=== PATIENT | female | born 1930 | race Caucasian/White ===

== ENCOUNTER 2018-11-07 22:53 | Inpatient (IN) ==
[2018-11-08] MEDS ORDERED: NS 1,000 ML IV ONE (00:20)
[2018-11-08 01:12] LABS: BASO# 0.02 X1000 (0.0-0.2); BASO% 0.2 % (0.0-0.8); EOS# 0.04 X1000 (0.0-0.7); EOS% 0.3 % (0.0-10.0); HEMATOCRIT 35.4 % (37.0-47.0); HEMOGLOBIN 10.5 g/dL (12.0-16.0); LYMPH# 1.76 X1000 (1.2-3.4); LYMPH% 14.7 % (20.5-51.1); MCH 21.7 PG (27-31); MCHC 29.7 g/dL (33-37); MCV 73.1 FL (81-99); MONO# 1.18 X1000 (0.11-0.59); MONO% 9.8 % (1.7-9.3); MPV 10.6 FL (7.4-10.4); PLT 359 X1000 (130-400); RBC 4.84 XMIL (4.2-5.4)
[2018-11-08 01:14] LABS: AGAP 12; ALB/GLOB RATIO 1.7; ALBUMIN 4.3 g/dL (3.5-5.0); ALKALINE PHOSPHATASE 67 U/L (32-104); BUN 15 mg/dL (8-22); CALCIUM 10.9 mg/dL (8.8-10.2); CHLORIDE 102 mmol/L (98-107); CK TOTAL 101 U/L (24-173); COSMO 287; ESTIMATED GFR 53; GLUCOSE 127 mg/dL (70-104); GOT 16 U/L (10-30); GPT 12 U/L (10-36); LIPASE 17 U/L (13-60); POTASSIUM 4.1 mmol/L (3.5-5.1); SODIUM 143 mmol/L (136-145); TCO2 29 mmol/L (25-35); TOTAL BILIRUBIN < 0.15 mg/dL (0.20-1.00); TOTAL PROTEIN 6.8 g/dL (6.3-8.3)
--- NOTE | 2018-11-08 02:22 | PROVIDER DOCUMENTATION ---
This chart was entered by Catia Burns Scribe, acting as scribe for Jhonatan Mohamud MD. HPI-General Adult - General Chief Complaint: Diarrhea Stated Complaint: fall, diarrhea, weakness Time Seen by Provider: 11/07/18 23:39 Source: patient, family Allergies/Adverse Reactions: Patient Allergies Allergy/AdvReac Type Severity Reaction Status Date / Time codeine Allergy Unknown Verified 06/06/18 20:18 Penicillins Allergy ANAPHYLAXIS Verified 06/06/18 20:18 meperidine HCl * AdvReac NAUSEA Verified 06/06/18 20:18 [From Demerol] morphine AdvReac NAUSEA/VOMI Verified 06/06/18 20:18 TING promethazine HCl * AdvReac NAUSEA Verified 06/06/18 20:18 [From Phenergan] pseudoephedrine AdvReac Unknown Verified 06/06/18 20:18 Home Medications: Home Medication List Medication Instructions Recorded Confirmed Last Taken Type Aspirin 81 mg PO QAM 05/11/12 12/18/17 12/18/17 08:00 History Clopidogrel [Plavix] 75 mg PO QHS 05/11/12 12/18/17 12/17/17 20:00 History Metformin [Glucophage] 500 mg PO BID 05/11/12 12/18/17 12/18/17 08:00 History ROSUVAstatin [Crestor] 40 mg PO QHS 05/11/12 12/18/17 12/17/17 20:00 History Nitroglycerin 0.4 mg SL PRN PRN 10/31/13 12/18/17 3 Months Ago History ~06/18/15 Ranolazine E.r. [Ranexa] 500 mg PO BID 10/31/13 12/18/17 12/17/17 20:00 History Omeprazole 40 mg PO DAILY 08/30/15 12/18/17 12/18/17 08:00 History Amlodipine [Norvasc] 10 mg PO DAILY #90 tablet 09/23/15 12/18/17 12/17/17 20:00 Rx LISINOpril [Prinivil] 40 mg PO QAM #90 tablet 09/23/15 12/18/17 12/15/17 08:00 Rx Ondansetron HCl [Zofran] 4 mg PO Q8H PRN 07/07/16 12/18/17 12/18/17 03:00 History Duloxetine [Cymbalta] 30 mg PO BID capsule 12/21/17 Unknown Rx Hydroxyzine [Atarax] 10 mg PO DAILY #30 tablet 12/21/17 Unknown Rx Rivaroxaban [Xarelto] 10 mg PO DAILY #30 tablet 12/21/17 Unknown Rx Tramadol/APAP [Ultracet 1 ea PO Q6H PRN PRN #20 tab 12/21/17 Unknown Rx 37.5MG/325Mg] Levofloxacin [Levaquin] 500 mg PO DAILY #10 tab 06/07/18 Unknown Rx Polyethylene Glycol 3350 [Miralax] 17 gm PO DAILY #10 powd.pack 06/07/18 Unknown Rx - History of Present Illness -Gen Adult Nature of Presenting Problems: Pt is 88/F presenting to ED w/ diarrhea that started this morning and some nausea and weakness. Pt has fallen 4 times today and had to call EMS twice to help her back up. Pt denies any LOC. Location of Pain/Injury: reports: none, generalized (generalized weakness) Pain Radiation: reports: no radiation Quality of Pain: reports: none Severity: reports: moderate Onset/Duration: reports: this morning Timing: reports: still present Context/Activities at Onset: reports: none Modifying Factors: improves with: nothing Associated Symptoms: reports: diarrhea, fatigue, nausea, weakness, trouble walking. denies: cough, fever/chills, shortness of breath Similar Symptoms Previously?: No Review of Systems - Adult - REVIEW OF SYSTEMS - ADULT Constitutional: reports: no symptoms reported. denies: chills, fever Eyes: reports: no symptoms reported Ears, Nose, Mouth & Throat: reports: no symptoms reported Cardiovascular: reports: no symptoms reported Respiratory: reports: no symptoms reported Gastrointestinal: reports: no symptoms reported, diarrhea. denies: nausea, vomiting Genitourinary: reports: no symptoms reported Musculoskeletal: reports: no symptoms reported Integumentary: reports: no symptoms reported Neurological: reports: no symptoms reported. denies: dizziness/vertigo, headache/migraines Endocrine: reports: no symptoms reported Hematologic/Lymphatic: reports: no symptoms reported Allergic/Immunologic: reports: no symptoms reported All Other Systems: Reviewed and Negative Past History - Adult - PAST MEDICAL HISTORY-ADULT Review of Records: reports: Old Records Reviewed, Nursing Assessment Review, Medications Reviewed, Social history reviewed & non-contributory. Major Childhood Illnesses: reports: Polio Cardiovascular: reports: A-Fib, HTN Respiratory: reports: denies history Gastrointestinal: reports: GERD, other (hiatal hernia) Obstetrical/Gynecological: reports: denies history Genitourinary: reports: denies history Musculoskeletal: reports: chronic pain, intervertebral disc disease Neurological: reports: denies history Psychiatric: reports: depression Endocrine/Immune: reports: Diabetes, denies history Other Conditions: reports: denies history, skin disorder (polio) - PRIOR SURGERIES/PROCEDURES Surgical/Procedure History: reports: hysterectomy, hernia repair, back/neck - IMMUNIZATION STATUS Childhood Immunizations: See Nurse Assessment Flu Vaccine: See Nurse Assessment - FAMILY HISTORY Family History: reviewed, not pertinent - SOCIAL HISTORY Smoking: denies Substance Use: none/never Alcohol Use Frequency: never Living Situation: alone Physical Exam-General - PHYSICAL EXAM-ADULT Initial Vital Signs Reviewed: Yes - CONSTITUTIONAL General Appearance: appears well, alert, no apparent distress - EYES Eyes: PERRL/EOMI, pink conjunctivae - HEAD, EARS, NOSE, MOUTH & THROAT HENMT: normocephalic/atraumatic, moist mucous membranes, normal ENT inspection, TMs normal, pharynx normal - NECK Neck: non-tender, full range of motion, supple, normal inspection - RESPIRATORY Respiratory: lungs clear - CARDIOVASCULAR Cardiovascular: regular rate, rhythm - GASTROINTESTINAL (ABDOMEN) Abdominal Exam: normal bowel sounds, non tender, soft - LYMPHATIC Lymphatic: no adenopathy - MUSCULOSKELETAL Back Exam: normal inspection, no CVA tenderness, no vertebral tenderness Extremity: normal range of motion, non-tender, normal gait, normal inspection - SKIN Integumentary: normal color, warm/dry - NEUROLOGIC Neurologic: grossly normal - PSYCHIATRIC Psych/Mental Status: normal mood/affect, normal thought content, normal thought process, oriented x 3 Progress - PLAN OF CARE/RESULTS Progress/Plan/Lab Results: Vital Signs - 8 hr 11/07/18 23:29 Temperature 97.6 F Pulse Rate 93 H Respiratory Rate 17 Blood Pressure 183/88 O2 Sat by Pulse Oximetry 95 Orders Category Date Time Status CT HEAD W/O CONTRAST [CT] Stat Exams 11/08/18 00:18 Ordered PELVIS [RAD] Stat Exams 11/08/18 00:19 Ordered C DIFF ANTIGEN [STOOL] Stat Lab 11/08/18 00:20 Uncollected CBC WITH ELECTRONIC DIFF [HEME] Stat Lab 11/08/18 00:18 Uncollected CK TOTAL [CHEM] Stat Lab 11/08/18 00:20 Uncollected COMPREHENSIVE METABOLIC PANEL [CHEM] Stat Lab 11/08/18 00:18 Uncollected LACTATE, PLASMA [CHEM] Stat Lab 11/08/18 00:18 Uncollected LIPASE [CHEM] Stat Lab 11/08/18 00:18 Uncollected OVA AND PARASITE W/TRICHROME [STOOL] Stat Lab 11/08/18 00:20 Uncollected PRO B-NATRIURETIC PEPTIDE Stat Lab 11/08/18 00:18 Uncollected STOOL CULTURE [RM] Stat Lab 11/08/18 00:20 Uncollected TROPONIN T Stat Lab 11/08/18 00:18 Uncollected 0.9% Sodium Chloride Inj [Ns] 1,000 ml Med 11/08/18 00:20 Active IV 999 mls/hr CT negative, pelvis xray negative, labs negative, pt has been found down on the ground twice today, will admit for hydration Result Diagrams: 11/08/18 00:32 11/08/18 00:32 Departure - Departure Date of Disposition Decision: 11/08/18 Time of Disposition Decision: 02:03 DIAGNOSIS: Diarrhea Qualifiers: Diarrhea type: presumed infectious Qualified Code(s): R19.7 - Diarrhea, unspecified Fall Qualifiers: Encounter type: initial encounter Qualified Code(s): W19.XXXA - Unspecified fall, initial encounter Disposition: ADMITTED INPATIENT 09 Certified Medical Emergency: Emergent Condition: Stable Referrals and Follow-Ups: Eloy Tuttle MD [Primary Care Provider] - - Critical Care Note This patient required my direct & personal management of CC.: No Attestation - Physician/ MATT Attestation Patient care was provided by Advanced Practice Provider:: No The physician spent face to face time with patient:: Yes Advanced Practice Provider documentation review:: Supervising physician onsite and consulted in the evaluation and care of this patient. The physician did have a face to face encounter with the patient. This chart was documented by the indicated scribe, (Catia Burns Scribe) and accurately reflects the services I performed and decisions made by me, Jhonatan Mohamud MD, as attested by the provider's signature.
[2018-11-08] MEDS ORDERED: ZOFRAN PO PRN (05:20)
[2018-11-08] MEDS ORDERED: TYLENOL PO PRN (05:34)
[2018-11-08] MEDS ORDERED: NS 1,000 ML IV SCH (05:45)
[2018-11-08] MEDS ORDERED: SODIUM CHLORIDE 0.9% INJ SCH (05:45)
--- NOTE | 2018-11-08 06:19 | Diag Imaging Result Doc PS360 ---
CT HEAD W/O CONTRAST - 11/08/2018 INDICATION: fall, head trauma COMPARISON: 12/18/2017 FINDINGS: The ventricles and sulci are normal in size and contour. Stable mild periventricular white matter chronic microvascular disease. No intracranial mass or hemorrhage. The skull is intact. The sinuses are clear. IMPRESSION: No acute disease or change from prior. This exam was performed using automated exposure control, adjustment of mA or kV according to patient size, and/or use of iterative reconstruction technique Electronically signed by Saravanan Monroe 11/08/2018 6:17 AM
--- NOTE | 2018-11-08 06:51 | HISTORY AND PHYSICAL ---
PRIMARY CARE PROVIDERS: Dr. Tuttle. CHIEF COMPLAINT: Weakness and diarrhea. HISTORY OF PRESENT ILLNESS: Ms. Renner is an 88-year-old female who presented tonight with the main complaints of weakness and a 4 to 5 day history of diarrhea. The patient states that she has been having abdominal pain in her left upper quadrant and left flank area. She states that she has had 4 to 5 days of diarrhea now. She reports that the stool color is dark brown to black. Prior to her diarrhea starting, she denied any recent problems with constipation. The patient reports that she does take MiraLAX to prevent constipation. She reports that the pain in her left upper quadrant and left flank area is intermittent. It is sharp at times though is sore at times as well. The patient also reports that she does have some dysphagia and is having difficulty swallowing liquids and food down at times. She also reports that she does have an upset stomach very often and does have frequent nausea as well as vomiting. She reports that the vomiting episodes do occur after eating sometimes when she eats too much. She reports that she can only eat small amounts at a time. She also reports that she has had a chronic cough for a long time secondary to some sinus drainage and when she coughs a lot she vomits as well. The patient does report that she has chronic pain but denies any new body aches or chills though she states that she has felt like she has had a fever, though this is only subjective, she has not checked her temperature at home. She reports that she does have severe headaches and left earache secondary to complications from her polio. This is not of new onset. She does report occasional chest pain although she denies any chest pain at present. The patient states she does have a lot of upper back and neck problems and she has chest pain that radiates to her back. She also reports that she becomes short of breath at times when she over exerts herself as well as when she eats she becomes short of breath as well. She does report that she is having some dysuria at this time and does have frequent urinary tract infections though she denied any recent antibiotic use. She also reports that she does have occasional swelling in her extremities although they are not edematous at this time. She does have some decreased sensation, loss of some motor control and deformity/foot drop to bilateral lower extremities though the patient states this is secondary to her polio and is not of new onset. She denies any recent changes to any of her medications. The patient reports that she does have chronic weakness secondary to her polio and back problems though this has been worse recently. She states that just prior to arrival to the ER, she was having difficulty moving herself from the bed to the wheelchair. The patient is nonambulatory though can place her feet on the ground to stand to pivot from the bed to the wheelchair. She states that when she put her feet on the ground, her legs gave way. She states that during this time, she was also having uncontrolled diarrhea as well. This is why she presented to the ER this evening. She also reports that she thinks she may have some dementia type symptoms. She stated that at 1 point, she did not recognize she was in her apartment. She stated that she thought 1 of her family members had come to pick her up though they had not. She also reports that she has been hearing music playing. This are things that she said have not happened in the past that she has noticed here recently that has happened a few times. The patient reports that she does live alone though does have some grand kids that live nearby that do help her though she does not have home health or an aide that comes out and assist her right now and does not have a Life Alert type device that she wears at home. Upon evaluation in the ER, she did have some mild leuk[place] [address] and is mildly anemic as well. Electrolytes were pretty unremarkable except for she had a slightly elevated creatinine at 1.0 with a GFR 53. Her troponin was negative. EKG unfortunately did have a lot artifact present though does appear that she has a sinus rhythm with a first-degree AV block at a rate of 89 with a QTc of 438. Did perform a CT head given her weakness. It showed no acute intracranial abnormality. The patient stated at home that she did not fall that she felt weak and had sat herself down in the floor. They also did perform a pelvis x-ray which did not show any acute bony abnormality. We do have an abdomen and pelvis with IV and oral contrast pending at this time. The patient will be placed inpatient admission. REVIEW OF SYSTEMS: A 14 point review of systems was conducted with the patient. All were negative except for pertinent positives mentioned in the above HPI. PAST MEDICAL HISTORY: 1. Chronic back pain. 2. Depression and anxiety. 3. Diabetes mellitus type 2. 4. History of fractures of both ankles. 5. History of acid reflux disease. 6. Hyperlipidemia. 7. Hypertension. 8. History of poliomyelitis which has affected her left side mainly being her left leg though she does have left-sided facial droop noted. She does report chronic headaches and chronic left ear pain. 9. C-spine spondylosis. 10. Spinal stenosis. 11. Vitamin B12 deficiency. 12. Perforation of the tympanic membrane on the left side previously. 13. Left lower extremity DVT status post left ankle surgery. 14. History of coronary artery disease. PAST SURGICAL HISTORY: 1. Back surgery. 2. Karyn fundoplication. 3. Hysterectomy. 4. Bilateral cataract surgery. 5. History of left heart catheterization. 6. History of left ankle surgery. 7. History of previous EGD and colonoscopy. 8. Diverticulosis. SOCIAL HISTORY: The patient is single. She does live alone. She is disabled. She does have a son who helps take care of her as well as some grand kids though at this time does not have any home health or aide type assistance that comes out to her house. She has no known history of tobacco, alcohol or illicit drug use. She is not ambulatory and does use a wheelchair. FAMILY HISTORY: Positive for her father of lung cancer at age 78. Her mother of metastatic cancer. She does have 1 daughter who currently has a diagnosis of pancreatic cancer. ALLERGIES: Patient has allergies to codeine, penicillin, Demerol, morphine, Phenergan and pseudoephedrine. HOME MEDICATIONS: We are awaiting the patient's home medication list to be updated and verified once done so we will dress her home medicine. DIAGNOSTIC DATA/LABORATORY RESULTS: [place] [address], hemoglobin 10.5, hematocrit 35.4, platelet count is 359,000. Sodium 143, potassium 4.1, chloride 102, serum bicarb is 29, BUN 15, creatinine 1, GFR is 53. Glucose 127, calcium 10.9. Magnesium is 2. Liver function tests within normal limits. CK 101, troponin less than 0.01. ProBNP is 736. Lipase 17, plasma lactate is 1.1. EKG shows sinus rhythm with a first-degree AV block at a rate of 89 with a QTc of 438. CT of the head showed no acute intracranial disease though there was diffuse brain atrophy and bilateral chronic ischemic demyelination noted. X-ray pelvis did not show any acute bony abnormality. We are awaiting official radiology over- read. We do have a pending CT of the abdomen and pelvis with IV and oral contrast. We are awaiting a urinalysis also. PHYSICAL EXAMINATION: VITAL SIGNS: Temperature 97.6 degrees, heart rate is 96. Respirations are 20, blood pressure is 188/90, oxygen saturation is 96% on room air. GENERAL: Ms. Renner is a very pleasant 88-year-old female she was resting in the ER stretcher. She was in no acute distress. She was awake, alert, and able to answer questions appropriately. HEENT: Head is atraumatic, normocephalic. Pupils are equal, round, reactive to light, were 3 mm bilaterally and brisk. Subconjunctivae were pink. Oral mucosa is slightly dry. Oropharynx is clear. NECK: Supple. Trachea midline. CARDIOVASCULAR: Patient has S1, S2 present. No murmurs, gallops, rubs appreciated with a regular rate and rhythm. PULMONARY: Patient has symmetrical chest expansion bilaterally. Lung sounds are clear to auscultation in bilateral full prado. ABDOMEN: Soft. Does not appear to be distended though the patient does have a protuberant abdomen noted. She was tender in her left upper quadrant, left flank and just inferior to her umbilicus. Bowel sounds were present in all 4 quadrants, were normoactive. EXTREMITIES: No cyanosis, clubbing, or edema noted. The patient does have some deformity noted to her left lower extremity as well as footdrop noted to bilateral feet. She does have some decreased sensation though this is not of new onset and has been present since her poliomyelitis. Radial pulses and pedal pulses were 2+ bilaterally. INTEGUMENTARY: The patient's skin is pink, warm, and dry. NEUROLOGICAL: Patient is alert and oriented to person, place, time, and situation. She is able to move all extremities though as mentioned above she does have some difficulty with motor control as well as some decreased sensation in her bilateral lower extremities secondary to poliomyelitis. There does not appear to be any new focal neurological deficits noted. ASSESSMENT AND PLAN: 1. Diarrhea. 2. Nausea and vomiting. 3. Abdominal pain. For numbers 1, 2 and 3, we have ordered stool studies. We are awaiting those results at this time. We are awaiting the results of an abdomen and pelvis CT with oral and IV contrast. The patient is reporting a lot of gastrointestinal symptoms which include dysphagia, frequent episodes of nausea and vomiting which she reports occur frequently after she eats. She is also reporting that she can only eat small meals that she does have some shortness of breath when she eats as well and has been reporting the 4 to 5 days of diarrhea for which she stated she was having dark brown to black stools. She has had an EGD and colonoscopy in the past which were noted to have esophagitis, duodenal diverticula, colon polyps and diverticulosis. We will await her CT abdomen and pelvis results though may consider consulting Gastroenterology as well. We will implement some gentle fluid hydration. We will treat her with antiemetics and await diagnostic study results. We will continue to follow. 4. Weakness. The patient does report that she has chronic weakness which has been ongoing since her poliomyelitis. As well, she does have chronic back problems and pain though she reports that this has been worse since her diarrhea started. This may be related to some fluid volume depletion. We will can continue to follow. Her CT of her head was negative. She did not have any new neurological deficits. Troponins were negative as well. Electrolytes were within normal range and her EKG showed a sinus rhythm with a first-degree AV block though the rate was 89. We will continue to follow closely. 5. Leukocytosis. At this time, this is of uncertain etiology though could be related to her nausea, vomiting, diarrhea and she has been reporting some dysuria. We are awaiting stool studies, CT abdomen and pelvis and a urinalysis. Will continue to follow. 6. Hypertension. We are waiting for home medication list to be reconciled. Once done so we will continue her daily prescribed home medication. Her blood pressure was slightly elevated. If this does not improve with her regularly prescribed home medicine, we will implement other antihypertensives. 7. Diabetes mellitus type 2. The patient normally takes metformin though she is receiving oral contrast dye. We will place her on a sliding scale insulin per low-dose protocol. We will do pattern fingerstick blood sugars. 8. Deep vein thrombosis prophylaxis. Will be provided with sequential compression devices at this time. The patient does have a history of DVT of the left lower extremity though is reporting dark brown to black stools. Given her weakness and diarrhea as well as she is slightly anemic, we will await Hemoccult stool results before continuing her Xarelto. Will await these results and continue to follow. The patient has been placed on the medical floor with telemetry. She will have vital signs q.4 hours. We will do strict intake and output. We have placed a case management and equipment services associate consult for assistance with possible need for home health care or aide upon discharge. Further orders and recommendations pending hospital course, diagnostic studies, and physician evaluation. Dictated by ROCAEL Rai for Chris Borjas MD cc: MD Ronnie Monsivais MD
[2018-11-08 07:09] LABS: INR 0.99; PROTIME 13.9 Seconds (11.0-16.0)
[2018-11-08 07:10] LABS: PTT 29.7 Seconds (22.3-41.8)
--- NOTE | 2018-11-08 07:46 | Diag Imaging Result Doc PS360 ---
EXAM: PELVIS INDICATION: fall TECHNIQUE: One view COMPARISON: None. FINDINGS: The bones are osteopenic. There is degenerative narrowing of the hip joint spaces, more prominent on the left. There is no discrete fracture or dislocation identified. Surrounding soft tissues are grossly unremarkable. IMPRESSION: No evidence of acute osseous abnormality by plain radiograph. Electronically signed by Raffy Bailey 11/08/2018 7:43 AM
--- NOTE | 2018-11-08 07:50 | Diag Imaging Result Doc PS360 ---
CT ABD/PELVIS W/PO AND IV CON - 11/08/2018 INDICATION: Diarrhea,Weakness,Abd. Pain Tenderness. COMPARISON: 06/06/2018 FINDINGS: There is a recurrent or persistent right lower lobe infiltrate compatible with pneumonia or atelectasis. Heart size is normal with no pericardial effusion. There is a small hiatal hernia. Stable cyst in the liver. Stable tiny left adrenal nodule. Stable small renal cysts bilaterally. Otherwise abdominal organs are normal. No bowel obstruction or inflammation. Uterus is absent. Urinary bladder and rectum are normal. No significant constipation. There are moderate degenerative changes of the spine. No acute or suspicious bony lesion. Stable severe calcified vascular disease throughout the aorta and its branches. IMPRESSION: 1. Right lower lobe pneumonia or atelectasis stable from the prior exam. 2. Otherwise no acute process. This exam was performed using automated exposure control, adjustment of mA or kV according to patient size, and/or use of iterative reconstruction technique Electronically signed by Saravanan Monroe 11/08/2018 7:47 AM
[2018-11-08] MEDS ORDERED: NITROGLYCERIN SL PRN (08:31)
[2018-11-08] MEDS: PRILOSEC PO SCH ×2 (10:02→12:32)
[2018-11-08] MEDS: GLUCOPHAGE PO SCH ×3 (10:02→17:35)
[2018-11-08] MEDS: CYMBALTA PO SCH ×2 (10:02→23:37)
[2018-11-08] MEDS: RANEXA PO SCH ×2 (10:02→23:36)
[2018-11-08] MEDS: XARELTO PO SCH (10:02)
[2018-11-08] MEDS: PROTONIX IV SCH (11:45)
[2018-11-08] MEDS: HUMULIN R SUBQ SCH ×4 (11:45→23:37)
[2018-11-08] MEDS: AMARYL PO SCH (12:31)
[2018-11-08] MEDS: ZOFRAN PO PRN (12:54)
[2018-11-08 13:39] LABS: URINE SOURCE CLEAN CATCH
[2018-11-08 13:45] LABS: BILIRUBIN URINE NEGATIVE (NEGATIVE); BLOOD URINE TRACE (NEGATIVE); COLOR STRAW; GLUCOSE URINE TRACE mg/dL (NEGATIVE); KETONE URINE NEGATIVE (NEGATIVE); LEUKOCYTES URINE NEGATIVE (NEGATIVE); NITRITE URINE NEGATIVE (NEGATIVE); PH URINE 7.5; PROTEIN URINE TRACE mg/dL (NEGATIVE); SP GRAVITY URINE 1.016; TURBIDITY URINE CLEAR (CLEAR); UR EPITHELIAL CELLS <10 /HPF (<10); URINE BACTERIA NEGATIVE /HPF; URINE RBC <10 /HPF (<10); URINE WBC <10 /HPF (<10); UROBILINOGEN URINE NORMAL (NORMAL)
--- NOTE | 2018-11-08 14:40 | EKG Report ---
Test Performed on : 11/08/2018 04:25:09 AM Test Reason : Weakness Blood Pressure : / mmHG Vent. Rate : 089 BPM Atrial Rate : 089 BPM P-R Int : 212 ms QRS Dur : 066 ms QT Int : 360 ms P-R-T Axes : 039 000 044 degrees QTc Int : 438 ms Sinus rhythm. with 1st degree AV block. Otherwise normal ECG When compared with ECG of 19-DEC-2017 07:09, No significant change was found Unconfirmed Result
[2018-11-08] MEDS: ASPIRIN PO SCH (23:37)
[2018-11-08] MEDS: ALDACTONE PO SCH (23:37)
[2018-11-08] MEDS: PRINIVIL PO SCH (23:37)
[2018-11-08] MEDS: CRESTOR PO SCH (23:37)
[2018-11-08] MEDS: ATARAX PO SCH (23:38)
[2018-11-09] MEDS: PROTONIX IV SCH (05:24)
[2018-11-09] MEDS: HUMULIN R SUBQ SCH ×4 (06:45→20:22)
[2018-11-09 07:33] LABS: BASO# 0.06 X1000 (0.0-0.2); BASO% 0.7 % (0.0-0.8); EOS# 0.21 X1000 (0.0-0.7); EOS% 2.4 % (0.0-10.0); HEMATOCRIT 32.5 % (37.0-47.0); HEMOGLOBIN 9.2 g/dL (12.0-16.0); LYMPH% 24.3 % (20.5-51.1); MCH 20.8 PG (27-31); MCHC 28.3 g/dL (33-37); MCV 73.4 FL (81-99); MONO# 0.99 X1000 (0.11-0.59); MONO% 11.5 % (1.7-9.3); MPV 10.3 FL (7.4-10.4); NEUT# 5.28 X1000 (1.4-6.5); NEUT% 61.1 % (42.2-75.2); PLT 335 X1000 (130-400); RBC 4.43 XMIL (4.2-5.4); RDW 18.3 % (11.5-14.5); WBC 8.64 X1000 (4.8-10.8)
[2018-11-09 07:48] LABS: BANDS 1 % (0-1); EOS 2 % (1-10); HYPOCHROM 2+; LYMPHS 24 % (21-51); MICROCYTOSIS 1+; MONO 12 % (1-9); SEGS 61 % (42-75)
[2018-11-09 07:49] LABS: OVALOCYTES OCCASIONAL
[2018-11-09 07:50] LABS: CALCIUM 9.8 mg/dL (8.8-10.2); CREATININE 0.9 mg/dL (0.5-0.9); POTASSIUM 3.2 mmol/L (3.5-5.1)
--- NOTE | 2018-11-09 08:26 | Diag Imaging Result Doc PS360 ---
EXAM: CHEST-2 VIEWS 11/09/2018 HISTORY: hypoxia TECHNIQUE: PA and lateral chest COMMENT: The right hemidiaphragm is elevated. There are platelike opacities in the left base. There is opacification of the posterior costophrenic sulcus in the right lower lobe which was not present on 12/18/2017. Otherwise there has been no appreciable change. IMPRESSION: Atelectasis versus pneumonia in the posterior right lower lobe. Otherwise stable. Electronically signed by Shon Christensen 11/09/2018 8:24 AM
[2018-11-09] MEDS: PRILOSEC PO SCH (08:38)
[2018-11-09] MEDS: XARELTO PO SCH (08:38)
[2018-11-09] MEDS: CYMBALTA PO SCH ×2 (08:38→20:07)
[2018-11-09] MEDS: RANEXA PO SCH ×2 (08:38→20:07)
[2018-11-09] MEDS: GLUCOPHAGE PO SCH ×2 (08:39→16:14)
[2018-11-09] MEDS: AMARYL PO SCH (12:25)
[2018-11-09] MEDS ORDERED: KLOR-CON PO ONE (13:52)
[2018-11-09] MEDS: ALDACTONE PO SCH (20:07)
[2018-11-09] MEDS: CRESTOR PO SCH (20:07)
[2018-11-09] MEDS: ASPIRIN PO SCH (20:07)
[2018-11-09] MEDS: PRINIVIL PO SCH (20:07)
[2018-11-09] MEDS: ATARAX PO SCH (20:07)
--- NOTE | 2018-11-09 21:28 | PROGRESS NOTE ---
DATE: 11/09/2018 HISTORY: An 88-year-old, white female, admitted to the hospital yesterday on 11/08 with weakness, diarrhea, frequent falls, head injuries. I did review the whole H and P was by hospitalist. Patient is well known to my practice. PAST MEDICAL HISTORY: Reviewed. PAST SURGICAL HISTORY: Reviewed. MEDICINES: Reviewed. ALLERGIES: Codeine, penicillin and morphine. REVIEW OF SYSTEMS: Patient complains of no caregiver. Diagnosed with pancreatic cancer. She has some coughing, abdominal cramps, diarrhea. Not able to ambulate. EXAMINATION: Vital Signs: Temperature is 97, pulse is 88, blood pressure 159/64. HEENT: Within normal limits. Neck: Supple. Chest: Bilateral air entry. Decreased breath sounds on the right base. Abdomen: Belly is soft, nontender. Good bowel sounds. No signs of peritonitis. 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 INVESTIGATIONS: CBC: White cell count 8.6, hematocrit 32.5, platelets 335. SMA-7: Sodium 144, potassium 3.2, chloride 106. BUN 8, creatinine 0.9. Glucose 117. ProBNP was normal. Urinalysis is clear. CT scan of the abdomen and pelvis: Right lobe atelectasis. Otherwise, no acute process. EKG normal sinus, nothing acute. X-ray of the hip and pelvic bone negative. CT head, no acute disease. Chest x-ray: Atelectasis and pneumonia in the posterior right lower lobe. ASSESSMENT AND PLAN: 1. Deconditioning with diarrhea. No signs of diarrhea noted. 2. Recurrent falls due to weakness. No injuries noted. 3. Elevation of right hemidiaphragm, chronic, stable. 4. Out of the bed with physical therapy. [facility] for rehab placement. 5. Waiting for stool studies. 6. Reconcile home medications. 7. Type 2 diabetes. Metformin and glimepiride. Blood sugars are running a little bit low. 8. Paroxysmal atrial fibrillation, coronary artery disease on Xarelto. 9. Chronic depression on Cymbalta. 10. Hyperlipidemia on Crestor. 11. Hypokalemia. Replace the potassium. 12. Will follow up. LEVEL OF DOCUMENTATION: 25 minutes. cc: Ronnie Tuttle MD
[2018-11-10] MEDS: HUMULIN R SUBQ SCH ×4 (06:03→20:17)
[2018-11-10] MEDS: PRILOSEC PO SCH (08:24)
[2018-11-10] MEDS: RANEXA PO SCH ×2 (08:24→20:14)
[2018-11-10] MEDS: GLUCOPHAGE PO SCH ×3 (08:24→20:16)
[2018-11-10] MEDS: CYMBALTA PO SCH ×2 (08:24→20:15)
[2018-11-10] MEDS: XARELTO PO SCH (08:27)
--- NOTE | 2018-11-10 09:10 | PROGRESS NOTE ---
DATE: 11/10/2018 SUBJECTIVE: The patient is complaining of multiple complaints of back pain. No diarrhea, no shortness of breath, not able to walk. REVIEW OF SYSTEMS: The rest of the review of systems are normal. OBJECTIVE: Vital Signs: On examination, temperature is 97 degrees, pulse is 82. Blood pressure 129/58 on 2 L nasal cannula, satting 95%. HEENT: Exam within normal limits. Neck: Supple. No lymphadenopathy. Chest: Decreased breath sounds in the right base. Heart: Sounds are very distant. Abdomen: Belly is soft, nontender. Good bowel sounds. Neurologic: No neurological deficits. INVESTIGATIONS: CBC: White cell count 8.6, hematocrit 32, platelets 335. SMA 7 is all normal. ASSESSMENT AND PLAN: 1. Diarrhea. Nothing significant. CT belly reveals abdomen negative. 2. Right lower lobe atelectasis. Incentive spirometry. Out of the bed with physical therapy. 3. Diabetes is stable. Continue on sliding scale with insulin coverage. No symptoms and signs of infection noted. Normal white cell count. No fever. 4. Continue present treatment. Deconditioning. No caregiver at home. [employer] for rehabilitation placement. LEVEL OF DOCUMENTATION: 25 minutes. cc: Ronnie Tuttle MD
[2018-11-10] MEDS: AMARYL PO SCH (11:30)
[2018-11-10] MEDS: ASPIRIN PO SCH (20:15)
[2018-11-10] MEDS: ATARAX PO SCH (20:15)
[2018-11-10] MEDS: CRESTOR PO SCH (20:15)
[2018-11-10] MEDS: ALDACTONE PO SCH (20:15)
[2018-11-10] MEDS: PRINIVIL PO SCH (20:15)
[2018-11-11] MEDS: ZOFRAN PO PRN (00:22)
[2018-11-11] MEDS: HUMULIN R SUBQ SCH ×4 (05:49→20:44)
[2018-11-11] MEDS: RANEXA PO SCH ×2 (08:52→20:44)
[2018-11-11] MEDS: CYMBALTA PO SCH ×2 (08:52→20:44)
[2018-11-11] MEDS: XARELTO PO SCH (08:52)
[2018-11-11] MEDS: PRILOSEC PO SCH (08:52)
[2018-11-11] MEDS: GLUCOPHAGE PO SCH ×2 (08:52→16:04)
[2018-11-11] MEDS: AMARYL PO SCH (11:12)
--- NOTE | 2018-11-11 11:31 | PROGRESS NOTE ---
DATE: 11/11/2018 SUBJECTIVE: Vital signs stable with temperature 98 degrees, heart rate 92, respirations 18, blood pressure 161/72, O2 saturation on room air 93%. I and O: Eating fairly well, about 75% of meals. She had several incontinent voids yesterday. She has multiple complaints, including abdominal pain, fluctuating blood sugar, 89 this morning and later today 218. She complains with nerve problems in her head related to polio many years ago. Workup has been essentially unremarkable. Stool studies and CT of her abdomen were without significant problem. She states that she had passed out a couple times at home recently. Plans are for rehabilitation early next week. cc: MD Ronnie Stephens MD
[2018-11-11] MEDS: CRESTOR PO SCH (20:43)
[2018-11-11] MEDS: ATARAX PO SCH (20:44)
[2018-11-11] MEDS: ASPIRIN PO SCH (20:44)
[2018-11-11] MEDS: PRINIVIL PO SCH (20:44)
[2018-11-11] MEDS: ALDACTONE PO SCH (20:44)
[2018-11-12] MEDS: HUMULIN R SUBQ SCH ×3 (06:12→16:41)
[2018-11-12] MEDS: GLUCOPHAGE PO SCH ×2 (08:12→16:41)
[2018-11-12] MEDS: XARELTO PO SCH (08:12)
[2018-11-12] MEDS: PRILOSEC PO SCH (08:12)
[2018-11-12] MEDS: RANEXA PO SCH ×2 (08:12→20:27)
[2018-11-12] MEDS: CYMBALTA PO SCH ×2 (08:12→20:26)
[2018-11-12] MEDS: AMARYL PO SCH (11:25)
--- NOTE | 2018-11-12 13:39 | PROGRESS NOTE ---
DATE: 11/12/2018 Vital signs stable with temperature 97.9 degrees, heart rate 95, respirations 16, blood pressure 152/57, O2 saturation on room air of 92%. There has been little change since yesterday. She continues to complain with low back pain. Physical therapy and occupational therapy are in progress. She is to be transferred to rehab soon. Tylenol was ordered for pain. She has had no chest pain or significant shortness of breath. PLAN: Try to get her up in a chair. cc: MD Ronnie Stephens MD
[2018-11-12] MEDS: PRINIVIL PO SCH (20:26)
[2018-11-12] MEDS: ALDACTONE PO SCH (20:26)
[2018-11-12] MEDS: ASPIRIN PO SCH (20:26)
[2018-11-12] MEDS: CRESTOR PO SCH (20:27)
[2018-11-12] MEDS: ATARAX PO SCH (20:27)
[2018-11-13] MEDS: HUMULIN R SUBQ SCH ×4 (03:02→16:51)
[2018-11-13] MEDS: CYMBALTA PO SCH (09:20)
[2018-11-13] MEDS: PRILOSEC PO SCH (09:20)
[2018-11-13] MEDS: GLUCOPHAGE PO SCH (09:20)
[2018-11-13] MEDS: RANEXA PO SCH (09:20)
[2018-11-13] MEDS: XARELTO PO SCH (09:20)
--- NOTE | 2018-11-13 09:38 | DISCHARGE SUMMARY ---
ADMISSION DATE: 11/08/2018 DISCHARGE DATE: 11/13/2018 DISCHARGING DIAGNOSES: 1. Diarrhea Deconditioning. due to Multiple falls with a history of left fibular fracture and polio of the left leg. SECONDARY DIAGNOSES: 1. 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 2. Chronic back pain. 3. Depression with anxiety. 4. Type 2 diabetes. 5. Acid reflux disease. 6. Hyperlipidemia. 7. Hypertension. 8. Abnormal chest x-ray with chronically elevated right hemidiaphragm. 9. Spondylosis of C-spine. 10. B12 deficiency. 11. 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 12. Coronary artery disease. 13. Diverticulosis. 14. History of deep venous thrombosis in the left leg. BRIEF HISTORY: Please see the H and P that was done by hospitalist on 11/08/2018. In brief, she is an 88-year-old white female, and of the caregiver's diagnosed with pancreatic cancer came in with diarrhea, nausea and vomiting. Patient has multiple falls and weakness. She is not able to ambulate or do her activities of daily living. As a result, the family brought her to the ER. HOSPITAL COURSE: She was given IV fluids. Initially, she has elevated white cell count thought to be pneumonia. She has abnormal chest x-ray with a chronically elevated right hemidiaphragm with atelectasis. There were no symptoms or signs of pneumonia. Further workup: Stool cultures negative for C. Difficile. Stool for occult blood was negative. Patient was very feeble. LABORATORY: CBC: White cell count 8.6, hematocrit 32, and platelets 335,000. SMA 7, sodium 144, potassium 3.2, chloride 106, BUN 8, creatinine 0.9, and glucose 117. ProBNP is normal. Cardiac enzymes were negative. DISPOSITION: At the request of the family, the patient has been transferred to rehab. Living Will is DNR. DISCHARGE MEDICATIONS: 1. Crestor 40 daily. 2. Metformin 500 p.o. b.i.d. 3. Aspirin 81 mg daily. 4. Nitroglycerin as needed. 5. Ranexa 500 p.o. b.i.d. 6. Prilosec 40 daily. 7. Zofran 4 mg as needed for nausea. 8. Xarelto 10 daily. 9. Cymbalta 30 p.o. b.i.d. 10. Aldactone 25 daily. 11. Glimepiride 4 mg daily. 12. Lisinopril 20 daily. 13. Hydroxyzine 25 at bedtime. 14. MiraLAX 17 g daily as needed. 15. Subcutaneous sliding scale with insulin coverage. Outpatient Physical Therapy. cc: Ronnie Tuttle MD MTDDaisy
[2018-11-13 10:53] VITALS: BP 187/72
[2018-11-13] MEDS: AMARYL PO SCH (12:23)
[2018-11-13] MEDS: ZOFRAN PO PRN (14:52)
== END 2018-11-13 17:41 | DRG 392 ==
LOC: SUPCPDRO → ED 22:53 → SUATTDRO 11-08 03:58 → 3N 11-08 03:58
PROVIDERS: ADMIT Internal Medicine; ATTEND Internal Medicine
CPT/HCPCS: 70450; 71020; 71046; 72170; 74177; 80048; 80053; 81001; 82270; 82550; 82948; 83605; 83690; 83735; 83880; 84484; 85025; 85610; 85730; 87045; 87046; 87177; 87205; 87324; 87449; 88313; 89055; 93005; 94761; 94799; 97110; 97162; 97166; 97530; 99285; A9270; C9113; J7030; Q9967; S0164; XXXXX

== ENCOUNTER 2018-12-11 15:03 | Inpatient (IN) ==
[2018-12-11] MEDS ORDERED: NS 1,000 ML IV ONE (15:53)
--- NOTE | 2018-12-11 16:10 | EKG Report ---
Test Performed on : 12/11/2018 3:12:19 PM Test Reason : ams Blood Pressure : / mmHG Vent. Rate : 096 BPM Atrial Rate : 096 BPM P-R Int : 212 ms QRS Dur : 078 ms QT Int : 358 ms P-R-T Axes : 026 -26 043 degrees QTc Int : 452 ms Sinus rhythm. with 1st degree AV block. Left ventricular hypertrophy with repolarization abnormality Abnormal ECG When compared with ECG of 08-NOV-2018 04:25, (Unconfirmed) No significant change was found Unconfirmed Result
--- NOTE | 2018-12-11 16:24 | Diag Imaging Result Doc PS360 ---
EXAM: CHEST-2 VIEWS 12/11/2018 HISTORY: ams TECHNIQUE: PA and lateral chest COMMENT: There is some platelike atelectasis over both lung bases. The inspiration is suboptimal. Compared to 11/09/2018 there has been no significant change. IMPRESSION: Stable chest. Electronically signed by Shon Christensen 12/11/2018 4:22 PM
[2018-12-11 16:27] LABS: BASO# 0.04 X1000 (0.0-0.2); BASO% 0.5 % (0.0-0.8); EOS# 0.07 X1000 (0.0-0.7); EOS% 0.9 % (0.0-10.0); HEMATOCRIT 30.9 % (37.0-47.0); IMM GRAN# 0.02 X1000 (0.0-0.04); IMM GRAN% 0.2 % (0.0-0.5); LYMPH# 2.13 X1000 (1.2-3.4); LYMPH% 25.9 % (20.5-51.1); MCH 20.6 PG (27-31); MCHC 29.1 g/dL (33-37); MCV 70.9 FL (81-99); MONO# 0.87 X1000 (0.11-0.59); MONO% 10.6 % (1.7-9.3); MPV 10.3 FL (7.4-10.4); NEUT% 61.9 % (42.2-75.2); PLT 324 X1000 (130-400); RBC 4.36 XMIL (4.2-5.4); RDW 19.5 % (11.5-14.5); WBC 8.23 X1000 (4.8-10.8)
--- NOTE | 2018-12-11 16:28 | Diag Imaging Result Doc PS360 ---
EXAM: CT HEAD W/O CONTRAST 12/11/2018 HISTORY: ams TECHNIQUE: This exam was performed using automated exposure control, adjustment of mA or kV according to patient size, and/or use of iterative reconstruction technique. COMMENT: There are calcifications in the vertebral and internal carotid arteries bilaterally. There is no evidence of mass effect, bleed, or abnormal extra-axial fluid collection. There is mild generalized cerebral atrophy. There is periventricular white matter lucency bilaterally. Compared to 11/08/2018 there has been no significant change in the appearance of the brain. The visualized paranasal sinuses are clear. The calvarium is intact. IMPRESSION: Chronic microvascular white matter changes. Electronically signed by Shon Christensen 12/11/2018 4:25 PM
[2018-12-11 16:44] LABS: AGAP 12; ALB/GLOB RATIO 1.5; ALBUMIN 3.5 g/dL (3.5-5.0); ALKALINE PHOSPHATASE 57 U/L (32-104); BUN 18 mg/dL (8-22); CALCIUM 10.1 mg/dL (8.8-10.2); CHLORIDE 101 mmol/L (98-107); CK PROFILE 200 U/L (24-173); COSMO 288; CREATININE 1.3 mg/dL (0.5-0.9); ESTIMATED GFR 39; GLUCOSE 113 mg/dL (70-104); GOT 23 U/L (10-30); GPT 8 U/L (10-36); POTASSIUM 2.9 mmol/L (3.5-5.1); SODIUM 143 mmol/L (136-145); TCO2 30 mmol/L (25-35); TOTAL BILIRUBIN < 0.15 mg/dL (0.20-1.00); TOTAL PROTEIN 5.8 g/dL (6.3-8.3)
[2018-12-11 17:03] LABS: URINE SOURCE CATH
[2018-12-11 17:06] LABS: BILIRUBIN URINE NEGATIVE (NEGATIVE); BLOOD URINE SMALL (NEGATIVE); COLOR YELLOW; GLUCOSE URINE NEGATIVE (NEGATIVE); KETONE URINE TRACE mg/dL (NEGATIVE); LEUKOCYTES URINE NEGATIVE (NEGATIVE); NITRITE URINE NEGATIVE (NEGATIVE); PROTEIN URINE 200 mg/dL (NEGATIVE); SP GRAVITY URINE 1.018; TURBIDITY URINE CLEAR (CLEAR); UROBILINOGEN URINE NORMAL (NORMAL)
[2018-12-11 17:07] LABS: UR EPITHELIAL CELLS <10 /HPF (<10); URINE BACTERIA NEGATIVE /HPF; URINE RBC <10 /HPF (<10); URINE WBC <10 /HPF (<10)
[2018-12-11 17:12] LABS: CK INDEX 11.5 (0.0-2.5)
--- NOTE | 2018-12-11 18:01 | PROVIDER DOCUMENTATION ---
This chart was entered by Julia Vinson Scribe, acting as scribe for Bartolo Jackson MD. HPI-Neurological Disorder - General Chief Complaint: Altered Mental Status Stated Complaint: stroke like Time Seen by Provider: 12/11/18 15:37 Source: patient, EMS Allergies/Adverse Reactions: Patient Allergies Allergy/AdvReac Type Severity Reaction Status Date / Time codeine Allergy Unknown Verified 12/11/18 15:48 Penicillins Allergy ANAPHYLAXIS Verified 12/11/18 15:48 meperidine HCl * AdvReac NAUSEA Verified 12/11/18 15:48 [From Demerol] morphine AdvReac NAUSEA/VOMI Verified 12/11/18 15:48 TING promethazine HCl * AdvReac NAUSEA Verified 12/11/18 15:48 [From Phenergan] pseudoephedrine AdvReac Unknown Verified 12/11/18 15:48 Home Medications: Home Medication List Medication Instructions Recorded Confirmed Last Taken Type Aspirin 81 mg PO HS 05/11/12 12/11/18 1 Day Ago History ~12/10/18 Metformin [Glucophage] 500 mg PO BID 05/11/12 12/11/18 1 Day Ago History ~12/10/18 ROSUVAstatin [Crestor] 40 mg PO QHS 05/11/12 12/11/18 1 Day Ago History ~12/10/18 Nitroglycerin 0.4 mg SL PRN PRN 10/31/13 12/11/18 3 Months Ago History ~06/18/15 Ranolazine E.r. [Ranexa] 500 mg PO BID 10/31/13 12/11/18 1 Day Ago History ~12/10/18 Omeprazole 40 mg PO QHS 08/30/15 12/11/18 1 Day Ago History ~12/10/18 Ondansetron HCl [Zofran] 4 mg PO TID PRN PRN 07/07/16 12/11/18 12/18/17 03:00 History Duloxetine [Cymbalta] 30 mg PO BID capsule 12/21/17 12/11/18 1 Day Ago Rx ~12/10/18 Glimepiride 4 mg PO WLUNCH 11/08/18 12/11/18 1 Day Ago History ~12/10/18 Hydroxyzine [Atarax] 25 mg PO HS 11/08/18 12/11/18 1 Day Ago History ~12/10/18 LISINOpril [Prinivil] 20 mg PO HS 11/08/18 12/11/18 1 Day Ago History ~12/10/18 Polyethylene Glycol 3350 [Miralax] 17 gm PO Q3DAYS 11/08/18 12/11/18 3 Days Ago History ~12/08/18 Spironolactone 25 mg PO HS 11/08/18 12/11/18 1 Day Ago History ~12/10/18 - History of Present Illness-Neuro Nature of Presenting Problem: Patient is a 88 year old female who presents to the ED via EMS with altered mental status. EMS states prison staff stated patient has been having delusions and hallucinations since yesterday. Patient states headache. Patient was diagnosed with an UTI 10 days ago and was prescribed medication. Does not report fever. Patient is unable to ambulate due to having Polio. Headache Location: reports: global Severity: reports: mild Onset/Duration: reports: 24 hours ago Timing: reports: still present, getting worse Context: reports: other (AMS) Character of Altered Mental Status: reports: other (delusions and hallucinations) Any recent trauma/injury?: reports: none New weakness or altered sensation location:: reports: none Gait Baseline: unable to walk Associated Symptoms: reports: denies symptoms Similar Symptoms Previously?: Yes Recently seen or treated by another doctor?: Yes Review of Systems - Adult - REVIEW OF SYSTEMS - ADULT Constitutional: reports: no symptoms reported. denies: chills, fever, fatique Eyes: reports: no symptoms reported Ears, Nose, Mouth & Throat: reports: no symptoms reported Cardiovascular: reports: no symptoms reported Respiratory: reports: no symptoms reported Gastrointestinal: reports: no symptoms reported Genitourinary: reports: no symptoms reported Musculoskeletal: reports: no symptoms reported Integumentary: reports: no symptoms reported Neurological: reports: see HPI, headache/migraines (CLEMENTE). denies: dizziness/vertigo, numbness, seizure, syncope Psychiatric: reports: see HPI, other (delusions and hallucinations). denies: anxiety, depression, insomnia, suicidal thoughts Endocrine: reports: no symptoms reported Hematologic/Lymphatic: reports: no symptoms reported Allergic/Immunologic: reports: no symptoms reported All Other Systems: Reviewed and Negative Past History - Adult - PAST MEDICAL HISTORY-ADULT Review of Records: reports: Nursing Assessment Review, Medications Reviewed, Social history reviewed & non-contributory. Major Childhood Illnesses: reports: Polio Cardiovascular: reports: A-Fib, HTN Respiratory: reports: denies history Gastrointestinal: reports: GERD, other (hiatal hernia) Obstetrical/Gynecological: reports: denies history Genitourinary: reports: denies history Musculoskeletal: reports: chronic pain, intervertebral disc disease Neurological: reports: denies history Psychiatric: reports: depression Endocrine/Immune: reports: Diabetes Other Conditions: reports: denies history, skin disorder (polio) - PRIOR SURGERIES/PROCEDURES Surgical/Procedure History: reports: hysterectomy, hernia repair, back/neck - IMMUNIZATION STATUS Childhood Immunizations: See Nurse Assessment Flu Vaccine: See Nurse Assessment - FAMILY HISTORY Family History: reviewed, not pertinent - SOCIAL HISTORY Smoking: denies Substance Use: denies Living Situation: care facility (SNF) Physical Exam- Neurological - Physical Exam-Neuro Initial Vital Signs Reviewed: Yes General Appearance: alert, no apparent distress. negative: lethargic, slow to respond Eye Exam: bilateral eye: normal inspection, PERRL, EOMI HENMT: moist mucous membranes, normal ENT inspection. negative: angioedema, hearing deficit Head Injury: no evidence of injury. negative: ecchymosis, lacerations Neck: non-tender, normal inspection. negative: limited range of motion Respiratory: chest non-tender, lungs clear, normal breath sounds. negative: crackles, rales Cardiovascular: normal peripheral pulses, regular rate, rhythm. negative: tachycardia, systolic murmur Abdominal Exam: normal bowel sounds, non tender, soft. negative: guarding, rebound Extremity: non-tender. negative: erythema, swelling consumer advocate Exam: normal hearing, normal speech, PERRL. negative: facial droop Motor/Sensory: weak motor strength RUE, weak motor strength LUE Integumentary: normal color, normal turgor, warm/dry. negative: cyanosis, ecchymosis, erythema, jaundice Psych/Mental Status: normal mood/affect, oriented x 3. negative: paranoid Progress - PLAN OF CARE/RESULTS Progress/Plan/Lab Results: Vital Signs - 8 hr 12/11/18 15:38 12/11/18 16:56 Temperature 97.8 F 98 F Pulse Rate 97 H 91 H Respiratory Rate 16 18 Blood Pressure 106/59 143/77 O2 Sat by Pulse Oximetry 97 93 L Laboratory Results - last 24 hr 12/11/18 12/11/18 12/11/18 15:25 16:00 16:00 WBC 8.23 RBC 4.36 Hgb 9.0 L Hct 30.9 L MCV 70.9 L MCH 20.6 L MCHC 29.1 L RDW Std Deviation 19.5 H Plt Count 324 MPV 10.3 Immature Gran % (Auto) 0.2 Neut % (Auto) 61.9 Lymph % (Auto) 25.9 [place] % (Auto) 10.6 H Eos % (Auto) 0.9 Baso % (Auto) 0.5 Immature Gran # (Auto) 0.02 Neut # (Auto) 5.10 Lymph # (Auto) 2.13 [place] # (Auto) 0.87 H Eos # (Auto) 0.07 Baso # (Auto) 0.04 Sodium 143 Potassium 2.9 L Chloride 101 Carbon Dioxide 30 Anion Gap 12 BUN 18 Creatinine 1.3 H Estimated GFR/1.73 m2 39 BUN/Creatinine Ratio 14 Glucose 113 H POC Glucose 124 H Calculated Osmolality 288 Calcium 10.1 Total Bilirubin < 0.15 L AST 23 ALT 8 L Alkaline Phosphatase 57 Creatine Kinase 200 H Creatine Kinase Index 11.5 H CK-MB (CK-2) 23.00 H Troponin T Total Protein 5.8 L Albumin 3.5 Globulin 2.3 Albumin/Globulin Ratio 1.5 Plasma Lactate Urine Source Urine Color Urine Turbidity Urine pH Ur Specific [place] Urine Protein Ur Glucose (Stick) Ur Ketones (Stick) Urine Blood Urine Nitrite Urine Bilirubin Urobilinogen Dipstick Urine Leukocytes Urine WBC (Auto) Urine RBC (Auto) U Epithel Cells (Auto) Urine Bacteria (Auto) 12/11/18 12/11/18 12/11/18 16:00 16:00 16:55 WBC RBC Hgb Hct MCV MCH MCHC RDW Std Deviation Plt Count MPV Immature Gran % (Auto) Neut % (Auto) Lymph % (Auto) [place] % (Auto) Eos % (Auto) Baso % (Auto) Immature Gran # (Auto) Neut # (Auto) Lymph # (Auto) [place] # (Auto) Eos # (Auto) Baso # (Auto) Sodium Potassium Chloride Carbon Dioxide Anion Gap BUN Creatinine Estimated GFR/1.73 m2 BUN/Creatinine Ratio Glucose POC Glucose Calculated Osmolality Calcium Total Bilirubin AST ALT Alkaline Phosphatase Creatine Kinase Creatine Kinase Index CK-MB (CK-2) Troponin T 0.481 H* Total Protein Albumin Globulin Albumin/Globulin Ratio Plasma Lactate 0.9 Urine Source CATH Urine Color YELLOW Urine Turbidity CLEAR Urine pH 6.0 Ur Specific [place] 1.018 Urine Protein 200 A Ur Glucose (Stick) NEGATIVE Ur Ketones (Stick) TRACE A Urine Blood SMALL A Urine Nitrite NEGATIVE Urine Bilirubin NEGATIVE Urobilinogen Dipstick NORMAL Urine Leukocytes NEGATIVE Urine WBC (Auto) <10 Urine RBC (Auto) <10 U Epithel Cells (Auto) <10 Urine Bacteria (Auto) NEGATIVE Orders Category Date Time Status Admit - [facility] Routine AdmDCTranf 12/11/18 17:56 Ordered Activity - Bed Rest with BRP ORDERED Care 12/11/18 17:56 Ordered Call Admitting on Arrival AT ADMISSION Care 12/11/18 17:57 Ordered Neurological Check Q1h Care 12/11/18 17:56 Ordered Saline Loc NOW Care 12/11/18 15:51 Active Vital Signs Order Q 8-HR .ASSESS Care 12/11/18 17:56 Ordered Heart Healthy Diet Diet 12/11/18 17:57 Ordered CHEST-2 VIEWS [RAD] Stat Exams 12/11/18 15:[address] HEAD W/O CONTRAST [CT] Stat Exams 12/11/18 15:51 Completed BLOOD CULTURE [BLDCUL] Stat Lab 12/11/18 16:40 Results CBC WITH ELECTRONIC DIFF [HEME] Stat Lab 12/11/18 16:00 Completed CK PROFILE [SP CHEM] Stat Lab 12/11/18 16:00 Completed COMPREHENSIVE METABOLIC PANEL [CHEM] Stat Lab 12/11/18 16:00 Completed LACTATE, PLASMA [CHEM] Stat Lab 12/11/18 16:00 Completed TROPONIN T Stat Lab 12/11/18 16:00 Completed URINALYSIS W/POSS RFLX CULT [URINALYSIS] Stat Lab 12/11/18 16:55 Completed 0.9% Sodium Chloride Inj [Ns] 1,000 ml Med 12/11/18 15:53 Discontinued IV 999 mls/hr Oxygen Device Routine Oth 12/11/18 17:57 Ordered EKG [EKG] Stat Ther 12/11/18 15:51 Draft EKG [EKG] Stat Ther 12/11/18 17:00 Ordered Transfer/Admit Order [TRANSFER] Routine Transfer 12/11/18 17:55 Ordered A/P: AMS. elevated troponin and CK, CK MB. vitals stable. Dr Javier accepted admission for Dr Tuttle. No source of infection, WBC wnl, UA clean. CXR no infe ction. Result Diagrams: 12/11/18 16:00 12/11/18 16:00 - EKG 1 Time of EKG reading by physician:: 15:12 EKG Read and Signed by:: Bartolo Domingo EKG Interpretation (*Must complete 3 of following elements*): Abnormal Rate: 96 Rhythm: sinus rhythm with 1st degree AV block QRS: LVH Comments: abnormal ECG - XRAY 1 XRAY Study: Chest Impression: See EMR Report (EXAM: CHEST-2 VIEWS 12/11/2018 HISTORY: ams TECHNIQUE: PA and lateral chest COMMENT: There is some platelike atelectasis over both lung bases. The inspiration is suboptimal. Compared to 11/09/2018 there has been no significant change. IMPRESSION: Stable chest. Electronically signed by Shon Christensen 12/11/2018 4:22 PM 12/11/18 1622 Interpreting Physician: Shon Christensen MD Dictated Date/Time: 12/11/18 1621 cc: Bartolo Jackson MD; Eloy Tuttle MD) - CT/MRI 1 CT Study: Head Impression: See EMR Report (EXAM: CT HEAD W/O CONTRAST 12/11/2018 HISTORY: ams TECHNIQUE: This exam was performed using automated exposure control, adjustment of mA or kV according to patient size, and/or use of iterative reconstruction technique. COMMENT: There are calcifications in the vertebral and internal carotid arteries bilaterally. There is no evidence of mass effect, bleed, or abnormal extra-axial fluid collection. There is mild generalized cerebral atrophy. There is periventricular white matter lucency bilaterally. Compared to 11/08/2018 there has been no significant change in the appearance of the brain. The visualized paranasal sinuses are clear. The calvarium is intact. IMPRESSION: Chronic microvascular white matter changes. Electronically signed by Shon Christensen 12/11/2018 4:25 PM 12/11/18 1623 Interpreting Physician: Shon Christensen MD Dictated Date/Time: 12/11/18 162 cc: Bartolo Capone MD; Eloy Tuttle MD) - CONSULTS/PCP/HOSPITALIST Notification #1 *Consult/PCP/Hospitalist*: Dr Javier Time Discussed: 18:00 (admit to [facility]) Consult Disposition: Admit Departure - Departure Date of Disposition Decision: 12/11/18 Time of Disposition Decision: 18:00 DIAGNOSIS: Altered mental status Disposition: ADMITTED INPATIENT 09 Certified Medical Emergency: Emergent Condition: Stable Additional Freetext Instructions: We have examined and treated you today on an emergency basis only. This was not a substitute for, or an effort to provide, complete medical care. In most cases, you must let your doctor check you again. Tell your doctor about any new or lasting problems. We cannot recognize and treat all injuries or illnesses in one Emergency Department visit. If you had special tests, such as X-rays or CT scans, will be reviewed by radiologist and will call you if there are any new suggestions Follow up with primary care provider in 1 to 2 days if no improvement. If you do not have a primary care provider, you need to choose one as soon as possible. Take medicines as prescribed. Monitor for any side effects or adverse events from medications. If any side effect, adverse event or rash develops, or if you suspect any other adverse reaction to the medication, then discontinue the medication immediately and contact clinic /PCP or go to the nearest ER. Narcotic meds / sedative meds instruction - patent advised not to drive, operate any machinery or go into water after taking meds as it may impair mental ability to react to the situation in an appropriate manner . Continue other current medicines. Follow up with PCP within 24-48 hours, or sooner if symptoms worsen or fail to improve. Patient / guardian verbalizes understanding of treatment plan, medication, and side effects and agrees with treatment plan. Patient leaves ER in stable condition and ambulatory state. Return to ER as needed. Discharge instructions reviewed verbally and given to patient in written form. Follow up with primary care provider. Referrals and Follow-Ups: Eloy Tuttle MD [Primary Care Provider] - - Critical Care Note This patient required my direct & personal management of CC.: No Attestation - Physician/ MATT Attestation The physician spent face to face time with patient:: Yes Advanced Practice Provider documentation review:: Supervising physician onsite and consulted in the evaluation and care of this patient. The physician did have a face to face encounter with the patient. This chart was documented by the indicated scribe, (Julia Vinson, Louis) and accurately reflects the services I performed and decisions made by me, Bartolo Jackson MD, as attested by the provider's signature.
[2018-12-11] MEDS ORDERED: POTASSIUM CHLORIDE 20% LIQUID PO ONE (18:11)
[2018-12-11] MEDS ORDERED: ASPIRIN PO STA (19:17)
[2018-12-11] MEDS ORDERED: NITROGLYCERIN SL PRN (19:32)
[2018-12-11] MEDS ORDERED: ZOFRAN PO PRN (19:32)
[2018-12-11 19:39] LABS: CK INDEX 10.9 (0.0-2.5); CK-MB 23.76 ng/mL (0.0-5.0)
[2018-12-11] MEDS: LOPRESSOR PO SCH ×2 (20:06→21:00)
[2018-12-11] MEDS: PRILOSEC PO SCH (20:07)
[2018-12-11] MEDS: NITROGLYCERIN TOP SCH (20:22)
[2018-12-11] MEDS ORDERED: ASPIRIN EC ONE (20:23)
[2018-12-11] MEDS ORDERED: PLAVIX PO ONE (20:25)
[2018-12-11] MEDS ORDERED: PLAVIX ONE (20:30)
[2018-12-11] MEDS: HUMULIN R SUBQ SCH (20:38)
--- NOTE | 2018-12-11 20:50 | HISTORY AND PHYSICAL ---
CHIEF COMPLAINT: Confusion. HISTORY OF PRESENT ILLNESS: The patient is an 88-year-old white female followed by Dr. Heidy Tuttle. She was in the hospital about 2 to 4 weeks ago with some orthopedic difficulties. She has been at the rehab facility and her son has been monitoring her progress as has her daughter-in- law. Apparently, she has had some off and on confusion, fairly prominent over the past 5 days. There was concern that she might have a UTI, and she was treated with some antibiotics at the residential in the last few days, but she continued to have confusion which was prominent yesterday and today. She would have periods of lucidity on occasion and about 3 days ago was much improved overall with mentation. On questioning, both family members agree that she has had some confusion dating back to at least 4 months ago where she would come and go with her mental processes. There has been no history of definite fever. There has not been any history of chest pains or unusual shortness of breath by family report, and the patient denies particular chest pain, but does state in the past that she has had some low back pain. She is not able to give a good history at all at this point as she is quite confused. MEDICATIONS PRIOR TO ADMISSION: 1. Crestor 40 mg p.o. at bedtime. 2. Metformin 500 mg p.o. b.i.d. 3. Aspirin 81 mg p.o. at bedtime. 4. Nitroglycerin 0.4 mg sublingual every 5 minutes p.r.n. chest pain. 5. Ranexa ER 500 mg p.o. b.i.d. 6. Omeprazole 40 mg p.o. at bedtime. 7. Zofran 4 mg p.o. t.i.d. p.r.n. nausea. 8. Cymbalta 30 mg p.o. b.i.d. 9. Aldactone 25 mg p.o. at bedtime. 10. Glimepiride 4 mg p.o. daily with lunch. 11. Lisinopril 20 mg p.o. at bedtime. 12. Atarax 25 mg p.o. at bedtime. 13. MiraLAX 17 g in 8 ounces of water every 3 days. ALLERGIES: Codeine, penicillin, Demerol, and morphine, also to Phenergan and Sudafed. PAST MEDICAL HISTORY: 1. Coronary artery disease by report, with negative stress test in 2013 and possibly in 2016. Son is unaware of left heart catheterization, but by old records, there has been a history of left heart catheterization in the past, unknown findings. 2. 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 Prior to a year ago, was able to ambulate some. 3. Chronic back pain. 4. Depression with anxiety. 5. Type 2 diabetes mellitus. 6. Gastroesophageal reflux disease. 7. Hyperlipidemia. 8. Hypertension. 9. History of chronically elevated right hemidiaphragm. 10. Spondylosis of C-spine. 11. History of B12 deficiency. 12. 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 13. Diverticulosis. 14. History of DVT in the left leg, remote. 15. History of bilateral ankle fractures, remote. 16. History of spinal stenosis. PAST SURGICAL HISTORY: 1. Back surgery. 2. Karyn fundoplication. 3. Hysterectomy. 4. Bilateral cataract surgery. 5. History of left ankle surgery. 6. History of EGD and colonoscopy. 7. Diverticulosis. FAMILY HISTORY: Father of lung cancer at age 78. Mother of metastatic cancer. One daughter of pancreatic cancer. SOCIAL HISTORY: Patient is residing in a local residential. Son is active in her care. No definite history of tobacco or alcohol usage. REVIEW OF SYSTEMS: As above, very poor historian. Unable to obtain any review of systems. PHYSICAL EXAMINATION: VITAL SIGNS: Afebrile, pulse 89, respirations 18, blood pressure 131/78, O2 saturation on 3 L 97%. GENERAL: Moderately obese white female, very confused. SKIN: No rash or breakdown identified currently. PERRL. EOMI. Sclerae clear. TMs not visualized. OP: Tongue in the midline. NECK: No LA, TMG, JVD. Mild carotid bruits bilaterally. CV: RRR without murmur. LUNGS: Clear. ABDOMEN: Protuberant, soft. No mass or organomegaly. No rebound or guarding. BREASTS/PELVIC/RECTAL: Deferred. EXTREMITIES: No major lower extremity edema. There are chronic changes to the left ankle with lateral deviation to the left ankle and foot. NEUROLOGIC: She moves all extremities, but is weak in the left arm and leg. Cannot rule out minimal left mouth droop. Otherwise, cranial nerves are intact. IMAGING: CT of the head done today without contrast reveals chronic microvascular changes. Chest x-ray shows platelike atelectasis over both lung bases. Inspiration suboptimal. No change since chest x-ray done 11/09/2018. EKG: Sinus rhythm with first-degree AV block, left ventricular hypertrophy noted. No acute ST changes. LABORATORIES: White count of 8.23, hemoglobin 9.0, which is stable from recent hospitalization, hematocrit 30.9, platelets 324,000, neutrophils 61, lymphocytes 25, monocytes 10. Sodium 143, potassium 2.9, chloride 101, CO2 30, BUN 18, creatinine 1.3, glucose 113, calcium 10.1, total bilirubin less than 0.15, AST 23, ALT 8, alkaline phosphatase 57, total CK 200, CK index 11.5, CK- MB 23, troponin 0.481, total protein 5.8, albumin 3.5, plasma lactate 0.9. Urinalysis is a cath specimen and shows 200 of protein, trace ketones, small blood, negative leukocytes, less than 10 WBCs and RBCs per microscopic exam, negative bacteria. ASSESSMENT: 1. Delirium, likely on top of dementia. 2. Elevated troponin and cardiac enzymes in an extremely poor historian. 3. Possible history of prior coronary artery disease, on chronic Ranexa per Dr. Tuttle. 4. Possible left facial droop, rule out cerebrovascular accident, ischemic variety, with negative CT head for acute processes. 5. History of polio with left arm and leg weakness chronically, now bed-bound. 6. Hypertension. 7. Hypercholesterolemia. 8. Type 2 diabetes mellitus. 9. History of right hemidiaphragm elevation by chest x-ray. 10. History of spinal stenosis and spondylosis of C-spine and LS spine. 11. History of B12 deficiency. 12. Diverticulosis. 13. Remote history of deep venous thrombosis, left leg. 14. Depression with anxiety. 15. Chronic back pain. 16. Anemia of chronic disease. 17. Hypokalemia. PLAN: The patient will be admitted to [facility]. I have spoken with her son in detail. He is aware of her potential myocardial infarction. I spoke with Dr. Smyth as well. We will continue aspirin [address] her on nitroglycerin paste 0.5 inch to chest q.6 hours. Will give her low-dose metoprolol. Hold her lisinopril at this point. Hold her Atarax due to confusion. Check serial cardiac enzymes and troponin levels. Continue her Ranexa and Crestor and Aldactone, and we will check direct lipid profile in the morning, along with BMP and magnesium and CBC. She has received 40 mEq of potassium orally by the ER physician, and we will monitor that lab value closely. I spoke with Dr. Smyth in detail and he plans on seeing the patient. cc: MD Ronnie English MD
[2018-12-11] MEDS: RANEXA PO SCH (20:52)
[2018-12-11] MEDS: CYMBALTA PO SCH (20:52)
[2018-12-11] MEDS: CRESTOR PO SCH (20:52)
[2018-12-11] MEDS: ALDACTONE PO SCH (20:52)
[2018-12-11] MEDS ORDERED: ATARAX PO SCH (21:00)
--- NOTE | 2018-12-11 21:25 | CARDIOLOGY CONSULTATION ---
DATE: 12/11/2018 REASON FOR CONSULTATION: Cardiology was consulted for myocardial infarction. HISTORY OF PRESENT ILLNESS: The patient has significant dementia. She was brought to the emergency room with altered mental status. The patient answers questions in monosyllables. History was obtained from the chart and discussing with Dr. Javier. Patient's family was not present. She has a history of hypertension, diabetes. When she came in, her laboratory examination revealed a sodium of 143, potassium 2.9, BUN 18, creatinine 1.3. Cardiac enzymes were abnormal with a CK-MB of 43 and troponin of 0.430. Electrocardiogram revealed normal sinus rhythm, inferior myocardial infarction, compared to previous electrocardiogram. Patient does not complain of having any discomfort at the present time other than complaining of lower extremity pain. She looks comfortable. REVIEW OF SYSTEMS: Could not be elicited from the patient in detail. PAST MEDICAL HISTORY: 1. Polio, left leg. 2. Chronic back pain. 3. Depression and anxiety. 4. Gastroesophageal reflux disease. 5. Hypertension. 6. Spondylosis of cervical spine. 7. B12 deficiency. 8. History of coronary artery disease, mentioned. 9. Diverticulosis. 10. Diabetes. 11. History of frequent falls. HOME MEDICATIONS: Listed, include: 1. Atarax 20. 2. Lisinopril 20. 3. Glimepiride 4 mg. 4. Spironolactone 25. 5. Duloxetine 30. 6. Omeprazole 40 at bedtime. 7. Ranexa 500 b.i.d. 8. Enteric-coated aspirin. 9. Metformin 500 b.i.d. 10. Crestor 40. ALLERGIES: The patient is allergic to codeine, penicillin, morphine. PHYSICAL EXAMINATION: Vital Signs: Blood pressure 129/68. Cardiac: First and second heart sounds were heard. There was no S3 gallop. Respiratory: Poor air entry. There were no crepitations. Abdomen: Soft, nontender. There was no guarding or rigidity. Bowel sounds were heard. Central Nervous System: Answering questions in monosyllables. Moving extremities. Detailed central nervous system examination not performed. ASSESSMENT AND PLAN: Ms. Kellie Renner is an 88-year-old, lady who was brought in for altered mental status. Does not complain of any chest pain. Has history of diabetes, hypertension, coronary artery disease, gastroesophageal reflux disease. Has had chronic low back pain. Was noted to have abnormal electrocardiogram and cardiac enzymes. Electrocardiogram revealed normal sinus rhythm with Q-waves in the inferior leads and minimal ST-elevation in lead 3, lead AVF, suggestive of infarction. She has abnormal cardiac enzymes. We will manage her medically given her status. She is not complaining of any chest pain. I would recommend, from a cardiac standpoint, enteric-coated aspirin and beta-blockers, 12.5 mg Lopressor twice daily, in addition to an inch of nitroglycerin paste. In addition, she has had history of falls and is, I believe, not mobile. We will put her on Plavix 75 mg a day. We will get an echocardiogram to assess cardiac and valvular function. She has history of diabetes, gastroesophageal reflux disease, and hypertension. Would recommend continuing her home medications. Thank you for the consult. We will follow hospital course. cc: MD Ronnie Ortiz MD
[2018-12-12] MEDS: NITROGLYCERIN TOP SCH ×4 (01:25→20:38)
[2018-12-12 03:22] LABS: CK INDEX 9.5 (0.0-2.5); CK-MB 18.29 ng/mL (0.0-5.0)
--- NOTE | 2018-12-12 05:56 | EKG Report ---
Test Performed on : 12/11/2018 6:04:26 PM Test Reason : CP Blood Pressure : / mmHG Vent. Rate : 085 BPM Atrial Rate : 085 BPM P-R Int : 212 ms QRS Dur : 078 ms QT Int : 382 ms P-R-T Axes : 030 -16 033 degrees QTc Int : 454 ms Sinus rhythm. with 1st degree AV block. Otherwise normal ECG When compared with ECG of 11-DEC-2018 15:12, (Unconfirmed) No significant change was found Unconfirmed Result
[2018-12-12] MEDS: HUMULIN R SUBQ SCH ×4 (06:04→20:39)
[2018-12-12] MEDS: LOPRESSOR PO SCH ×2 (08:55→20:39)
[2018-12-12] MEDS: RANEXA PO SCH ×2 (08:56→20:40)
[2018-12-12] MEDS: ASPIRIN EC PO SCH (08:56)
[2018-12-12] MEDS: LOVENOX SUBQ SCH (08:56)
[2018-12-12] MEDS: CYMBALTA PO SCH ×2 (08:56→20:39)
[2018-12-12 10:22] LABS: BASO# 0.02 X1000 (0.0-0.2); BASO% 0.2 % (0.0-0.8); EOS# 0.11 X1000 (0.0-0.7); EOS% 1.4 % (0.0-10.0); HEMATOCRIT 27.7 % (37.0-47.0); HEMOGLOBIN 7.9 g/dL (12.0-16.0); IMM GRAN# 0.02 X1000 (0.0-0.04); IMM GRAN% 0.2 % (0.0-0.5); LYMPH% 18.6 % (20.5-51.1); MCH 20.8 PG (27-31); MCHC 28.5 g/dL (33-37); MCV 73.1 FL (81-99); MONO# 0.86 X1000 (0.11-0.59); MONO% 10.7 % (1.7-9.3); MPV 10.3 FL (7.4-10.4); NEUT# 5.54 X1000 (1.4-6.5); NEUT% 68.9 % (42.2-75.2); PLT 291 X1000 (130-400); RBC 3.79 XMIL (4.2-5.4); RDW 19.6 % (11.5-14.5); WBC 8.05 X1000 (4.8-10.8)
[2018-12-12 11:42] LABS: CALCIUM 9.4 mg/dL (8.8-10.2); CREATININE 0.9 mg/dL (0.5-0.9); MAGNESIUM 1.8 mg/dL (1.5-2.7); POTASSIUM 3.7 mmol/L (3.5-5.1)
--- NOTE | 2018-12-12 15:07 | ECHO REPORT ---
ORDER DATE: 12/11/2018 MEASUREMENTS: 1. Interventricular septum 1.2. 2. Left ventricular posterior wall 1.2. 3. Diastolic diameter 3.9. 4. Left atrium 4.0. 5. Aorta 3.4. SUMMARY: 1. There was moderate mitral annular calcification, there was mild systolic anterior motion of the tip of the mitral valve leaflet. 2. Aortic valve leaflets were sclerosed, trileaflet. 3. Pulmonic valve was normal. 4. There is left atrial enlargement. 5. Normal left ventricular cavity size. Estimated ejection fraction of 70%. There is diastolic dysfunction. 6. There is hyperdynamic circulation. 7. There is no aortic stenosis or regurgitation. 8. There is mild mitral regurgitation. 9. Mild tricuspid regurgitation. 10. Peak velocity across the tricuspid valve was 3 m/sec. 11. Pulmonary artery systolic pressure of 46 to 50 mmHg. 12. There is no pericardial effusion or obvious intracardiac mass or thrombus. cc: MD Ronnie Ortiz MD
--- NOTE | 2018-12-12 20:30 | PROGRESS NOTE ---
DATE: 12/12/2018 SUBJECTIVE: An 88-year-old white female was admitted to the hospital with altered mental status, abnormal cardiac enzymes. I did review the H and P by Dr. Javier. Appreciate Dr. Smyth consult last night. REVIEW OF SYSTEMS: The patient is awake, wearing oxygen through the nose and not complaining of any chest pain or shortness of breath. The rest of the review of systems is normal. PAST MEDICAL HISTORY: Reviewed. PAST SURGICAL HISTORY: Reviewed. MEDICATIONS: Reviewed. ALLERGIES: Codeine, meperidine and morphine. OBJECTIVE: On examination, temperature is 98.2 degrees, pulse 73, blood pressure 150/57, 2 L nasal cannula. HEENT exam within normal limits. Poor air entry on the right side. Distant heart sounds. No murmur. Belly is soft, obese. Left leg has weakness due to polio. LABORATORY DATA: CBC: White cell count 8, hematocrit 27.7, platelets 291,000. SMA 7: Sodium 139, potassium 3.7, BUN 17, creatinine 0.9, glucose 115. CK was positive, MB index positive as well as troponin. Triglycerides 63, cholesterol 150 and LDL 40. Urinalysis: Trace ketones. DIAGNOSTIC DATA: EKG: Normal sinus, first-degree AV block, nothing acute. Echocardiography findings: Normal LV cavity size. Estimated EF 70%. Diastolic dysfunction. Hyperdynamic circulation. Pulmonary hypertension noted. Chest x-ray: Elevation of the right hemidiaphragm with atelectasis on the left side. ASSESSMENT AND PLAN: 1. Altered mental status due to metabolic encephalopathy. 2. Hypokalemia is better. 3. Deep venous thrombosis prophylaxis with Lovenox. 4. Type 2 diabetes, on sliding scale with insulin coverage. 5. Hyperlipidemia, on Crestor. LDL is at target. 6. Acid reflux disease, on Prilosec. 7. Positive cardiac enzymes, non-Q-wave myocardial infarction. Currently pain-free. Continue on aspirin. The patient was placed on nitroglycerin as a nitroglycerin patch. Ranexa, Aldactone. Echocardiogram was normal. Will discuss with Dr. Smyth after stabilizing, and consider further workup. 8. History of polio on the left leg, stable. 9. Will follow up. Level of documentation 35 minutes. cc: Ronnie Tuttle MD
[2018-12-12] MEDS: CRESTOR PO SCH (20:39)
[2018-12-12] MEDS: ALDACTONE PO SCH (20:39)
[2018-12-12] MEDS: PRILOSEC PO SCH (20:41)
[2018-12-13] MEDS: NITROGLYCERIN TOP SCH ×4 (01:32→20:27)
[2018-12-13] MEDS: HUMULIN R SUBQ SCH ×4 (06:01→20:24)
[2018-12-13] MEDS: RANEXA PO SCH ×2 (08:47→20:24)
[2018-12-13] MEDS: LOVENOX SUBQ SCH (08:48)
[2018-12-13] MEDS: CYMBALTA PO SCH ×2 (08:48→20:24)
[2018-12-13] MEDS: ASPIRIN EC PO SCH (08:48)
[2018-12-13] MEDS: LOPRESSOR PO SCH ×2 (08:48→20:24)
[2018-12-13] MEDS: DUONEB (A & A) INH PRN (17:56)
[2018-12-13] MEDS: CRESTOR PO SCH (20:24)
[2018-12-13] MEDS: ALDACTONE PO SCH (20:24)
[2018-12-13] MEDS: PRILOSEC PO SCH (20:24)
--- NOTE | 2018-12-13 21:51 | PROGRESS NOTE ---
DATE: 12/13/2018 SUBJECTIVE: The patient is still confused. Her son lives in [place]. She is in and out, and not able to walk. PHYSICAL EXAMINATION: Vital Signs: Temperature is 98. Vitals are stable. HEENT: Within normal limits. Chest: Poor air entry. Heart: Sounds are regular. Belly: Soft, nontender. Good bowel sounds. No masses palpable. Neurologic: No neurological deficits. INVESTIGATIONS: Sugar is 152. ASSESSMENT AND PLAN: 1. Altered mental status due to metabolic encephalopathy, improving. 2. Positive cardiac enzymes, currently stable, currently asymptomatic. We will discuss with Dr. Smyth at some point, we will consider doing further workup. 3. Out of the bed with physical therapy. 4. Incentive spirometry, bronchodilators. Continue present treatment. 5. Encourage physical therapy. We will talk to the family today about the long-term plans. LEVEL OF DOCUMENTATION: 25 minutes. cc: Ronnie Tuttle MD
[2018-12-14] MEDS: NITROGLYCERIN TOP SCH ×4 (04:08→21:04)
[2018-12-14 04:46] LABS: ALLEN TEST YES; BE 9.4 mmoll (-3.0-3.0); BLOOD TYPE ARTERIAL; HCO3-(ACT) 32.3 mmoll (20.0-26.0); METHB 1.2 % (0.0-1.5); O2(CT) 11.5 mL/dL (15.0-23.0); O2HB 96.5 % (95.0-99.0); PO2(98.6) 124 mmHg (60-100); SAMPLE BLOOD; SAO2 98.8 % (95.0-100.0); THB 8.3 g/dL (11.5-17.4); pH(98.6) 7.35 (7.35-7.45)
[2018-12-14 05:09] LABS: MODALITY ROOM AIR; PCO2(98.6) 66 mmHg (35-45)
[2018-12-14 06:06] LABS: AGAP 7; BUN 11 mg/dL (8-22); CALCIUM 9.5 mg/dL (8.8-10.2); CHLORIDE 97 mmol/L (98-107); CK PROFILE 51 U/L (24-173); COSMO 275; CREATININE 0.8 mg/dL (0.5-0.9); ESTIMATED GFR > 60; GLUCOSE 124 mg/dL (70-104); POTASSIUM 3.6 mmol/L (3.5-5.1); SODIUM 137 mmol/L (136-145); TCO2 33 mmol/L (25-35)
[2018-12-14 06:08] LABS: BASO# 0.02 X1000 (0.0-0.2); BASO% 0.2 % (0.0-0.8); EOS# 0.11 X1000 (0.0-0.7); EOS% 1.4 % (0.0-10.0); HEMATOCRIT 27.6 % (37.0-47.0); HEMOGLOBIN 7.9 g/dL (12.0-16.0); LYMPH# 1.56 X1000 (1.2-3.4); LYMPH% 19.3 % (20.5-51.1); MCH 20.8 PG (27-31); MCHC 28.6 g/dL (33-37); MCV 72.6 FL (81-99); MONO# 1.14 X1000 (0.11-0.59); MONO% 14.1 % (1.7-9.3); MPV 10.6 FL (7.4-10.4); NEUT# 5.27 X1000 (1.4-6.5); PLT 272 X1000 (130-400); RDW 19.1 % (11.5-14.5)
[2018-12-14] MEDS: HUMULIN R SUBQ SCH ×4 (06:16→21:09)
[2018-12-14 06:45] LABS: BANDS 2 % (0-1); LYMPHS 22 % (21-51); MONO 6 % (1-9); SEGS 70 % (42-75)
--- NOTE | 2018-12-14 08:10 | EKG Report ---
Test Performed on : 12/14/2018 07:46:30 AM Test Reason : Increased Trop Blood Pressure : / mmHG Vent. Rate : 072 BPM Atrial Rate : 072 BPM P-R Int : 218 ms QRS Dur : 082 ms QT Int : 408 ms P-R-T Axes : 021 -17 -25 degrees QTc Int : 446 ms Sinus rhythm. with 1st degree AV block. Minimal voltage criteria for LVH, may be normal variant Nonspecific T wave abnormality Abnormal ECG When compared with ECG of 11-DEC-2018 18:04, (Unconfirmed) Nonspecific T wave abnormality now evident in Anterior leads Confirmed by Buddy SORENSEN, Reza Swan ([id number]) on 12/14/2018 8:47:24 AM
[2018-12-14] MEDS: LOPRESSOR PO SCH ×2 (08:36→21:04)
[2018-12-14] MEDS: LOVENOX SUBQ SCH (08:37)
[2018-12-14] MEDS: ASPIRIN EC PO SCH (08:37)
[2018-12-14] MEDS: CYMBALTA PO SCH ×2 (08:37→21:09)
[2018-12-14] MEDS: RANEXA PO SCH ×2 (08:37→21:09)
[2018-12-14] MEDS: DUONEB (A & A) INH PRN (15:02)
--- NOTE | 2018-12-14 20:59 | PROGRESS NOTE ---
DATE: 12/14/2018 SUBJECTIVE: I had a long discussion with Ramon Goins, her son who is power of attorney general, last night as well as this morning and this evening. The patient is depressed and not offering any chest pain. REVIEW OF SYSTEMS: Not able to ambulate. OBJECTIVE: On examination, temperature is 98 degrees, pulse 73. Blood pressure is stable. HEENT exam within normal limits. Chest has poor air entry. Heart sounds are regular. Belly is soft, nontender. No neurological deficits. On 3 L nasal cannula 100%. LABORATORY DATA: CBC: White cell count 8.1, hematocrit 28, platelets 272,000. ABG pH is 7.35, pCO2 is 66, pO2 is 124 on room air. SMA 7: Sodium 137, potassium 3.6, chloride 97, BUN 11, creatinine 0.8, glucose 177. Troponin was positive. DIAGNOSTIC DATA: EKG: Normal sinus; Q seen in inferior leads, nothing acute. ASSESSMENT AND PLAN: 1. Non-Q-wave myocardial infarction with existing heart disease, asymptomatic. Normal echocardiography. Discussed with the patient's son. They do not want do any further workup unless she is very symptomatic, and basically continue on medical treatment which includes aspirin, beta-blockers, nitroglycerin, Ranexa. 2. Deep venous thrombosis prophylaxis with Lovenox. 3. Hyperlipidemia, on Crestor. 4. Dementia with depression. Continue with duloxetine. 5. Delirium with agitation. Seroquel at bedtime. 6. Acid reflux disease, on Prilosec. 7. Living Will is Do Not Resuscitate/Allow Natural . 8. Out of the bed with physical therapy. 9. If she is medically stable to the baseline, we will send her back to rehab. Family has agreed the plan of care. cc: Ronnie Tuttle MD
[2018-12-14] MEDS: CRESTOR PO SCH (21:04)
[2018-12-14] MEDS: SEROQUEL PO SCH (21:09)
[2018-12-14] MEDS: ALDACTONE PO SCH (21:09)
[2018-12-14] MEDS: PRILOSEC PO SCH (21:09)
[2018-12-15] MEDS: NITROGLYCERIN TOP SCH ×4 (02:07→20:51)
[2018-12-15 06:03] LABS: AGAP 11; BUN 11 mg/dL (8-22); CALCIUM 9.9 mg/dL (8.8-10.2); CHLORIDE 95 mmol/L (98-107); COSMO 278; CREATININE 0.8 mg/dL (0.5-0.9); ESTIMATED GFR > 60; GLUCOSE 113 mg/dL (70-104); SODIUM 139 mmol/L (136-145); TCO2 33 mmol/L (25-35)
[2018-12-15] MEDS: HUMULIN R SUBQ SCH ×4 (06:23→21:20)
[2018-12-15] MEDS: CYMBALTA PO SCH ×2 (08:34→20:50)
[2018-12-15] MEDS: LOPRESSOR PO SCH ×2 (08:34→20:51)
[2018-12-15] MEDS: ASPIRIN EC PO SCH (08:34)
[2018-12-15] MEDS: LOVENOX SUBQ SCH (08:34)
[2018-12-15] MEDS: RANEXA PO SCH ×2 (08:34→20:50)
[2018-12-15] MEDS ORDERED: POTASSIUM CHLORIDE 40 MEQ/SWI 40 MEQ/100 ML IVPB IV ONE (16:59)
--- NOTE | 2018-12-15 18:47 | PROGRESS NOTE ---
DATE: 12/15/2018 SUBJECTIVE: The patient is a little better. No complaints. Altered mental status improving. OBJECTIVE: Vital signs: Temperature is 98 degrees. Vitals are stable. HEENT Exam: Within normal limits. Chest: Clear. Heart: Sounds are regular. Abdomen: Belly is soft, nontender. No obvious deficits. ASSESSMENT AND PLAN: 1. Deconditioning. 2. Positive enzymes, asymptomatic. 3. Coronary artery disease. 4. Depression with dementia. Plan of care is continue present treatment. 5. Hypokalemia. Replace the potassium. 6. Do Not Resuscitate. The patient's son is agreeable and came back to the baseline and will send to [facility] on Tuesday. LEVEL OF DOCUMENTATION: 25 minutes. cc: Ronnie Tuttle MD
[2018-12-15] MEDS ORDERED: NS 500 ML IV SCH (20:30)
[2018-12-15] MEDS: ALDACTONE PO SCH (20:50)
[2018-12-15] MEDS: PRILOSEC PO SCH (20:50)
[2018-12-15] MEDS: SEROQUEL PO SCH (20:50)
[2018-12-15] MEDS: CRESTOR PO SCH (20:50)
[2018-12-15] MEDS: DUONEB (A & A) INH PRN (21:11)
[2018-12-15] MEDS: POTASSIUM CHLORIDE 20 MEQ/SWI 20 MEQ/100 ML IVPB IV SCH (23:45)
[2018-12-16] MEDS: NITROGLYCERIN TOP SCH ×4 (03:00→22:51)
[2018-12-16] MEDS: POTASSIUM CHLORIDE 20 MEQ/SWI 20 MEQ/100 ML IVPB IV SCH (04:38)
[2018-12-16] MEDS: HUMULIN R SUBQ SCH ×3 (06:41→18:30)
[2018-12-16 06:52] LABS: AGAP 9; BUN 12 mg/dL (8-22); CALCIUM 9.2 mg/dL (8.8-10.2); CHLORIDE 97 mmol/L (98-107); COSMO 281; CREATININE 0.8 mg/dL (0.5-0.9); ESTIMATED GFR > 60; GLUCOSE 106 mg/dL (70-104); POTASSIUM 3.1 mmol/L (3.5-5.1); SODIUM 141 mmol/L (136-145); TCO2 35 mmol/L (25-35)
[2018-12-16] MEDS: LOVENOX SUBQ SCH (10:37)
[2018-12-16] MEDS: CYMBALTA PO SCH ×2 (10:37→22:51)
[2018-12-16] MEDS: ASPIRIN EC PO SCH (10:38)
[2018-12-16] MEDS: LOPRESSOR PO SCH ×2 (10:38→22:50)
[2018-12-16] MEDS: RANEXA PO SCH ×2 (10:38→22:51)
--- NOTE | 2018-12-16 13:43 | PROGRESS NOTE ---
DATE: 12/16/2018 SUBJECTIVE: Ms. Renner is in about the same general condition. OBJECTIVE: Her potassium is 3.1. Blood sugar was 129. She has coronary artery disease, was admitted with positive cardiac enzymes. She is a DNR. Her lungs are clear at the present time. Heart sounds are normal. PLAN: We will continue with the current management. -5 cc: MD Ronnie Spence MD
[2018-12-16] MEDS: DUONEB (A & A) INH PRN (19:37)
[2018-12-16] MEDS: PRILOSEC PO SCH (22:51)
[2018-12-16] MEDS: CRESTOR PO SCH (22:51)
[2018-12-16] MEDS: SEROQUEL PO SCH (22:51)
[2018-12-16] MEDS: ALDACTONE PO SCH (22:51)
[2018-12-17] MEDS: HUMULIN R SUBQ SCH ×4 (00:55→16:51)
[2018-12-17] MEDS: NITROGLYCERIN TOP SCH ×4 (06:51→18:29)
[2018-12-17] MEDS: LOPRESSOR PO SCH ×2 (10:06→21:10)
[2018-12-17] MEDS: RANEXA PO SCH ×2 (10:06→21:11)
[2018-12-17] MEDS: CYMBALTA PO SCH ×2 (10:06→21:10)
[2018-12-17] MEDS: LOVENOX SUBQ SCH (10:07)
[2018-12-17] MEDS: ASPIRIN EC PO SCH (10:07)
--- NOTE | 2018-12-17 12:49 | PROGRESS NOTE ---
DATE: 12/17/2018 Ms Kellie Renner is doing much better. She is more alert. Her lungs are clear. Heart sounds are normal. Blood cultures have been negative. Blood sugar was 140. Vital signs are stable. We will continue with the current management on her. -9 cc: MD Ronnie Spence MD
[2018-12-17] MEDS ORDERED: TYLENOL PO PRN (15:21)
[2018-12-17] MEDS: SEROQUEL PO SCH (21:10)
[2018-12-17] MEDS: ALDACTONE PO SCH (21:10)
[2018-12-17] MEDS: CRESTOR PO SCH (21:10)
[2018-12-17] MEDS: PRILOSEC PO SCH (21:10)
[2018-12-18] MEDS: NITROGLYCERIN TOP SCH ×2 (00:41→06:58)
[2018-12-18] MEDS: HUMULIN R SUBQ SCH ×3 (02:29→10:53)
[2018-12-18] MEDS: RANEXA PO SCH (09:30)
[2018-12-18] MEDS: ASPIRIN EC PO SCH (09:30)
[2018-12-18] MEDS: CYMBALTA PO SCH (09:30)
[2018-12-18] MEDS: LOPRESSOR PO SCH (09:30)
[2018-12-18] MEDS: LOVENOX SUBQ SCH (09:31)
--- NOTE | 2018-12-18 09:37 | DISCHARGE SUMMARY ---
ADMISSION DATE: 12/11/2018 DISCHARGE DATE: 12/18/2018 DISCHARGING DIAGNOSES: 1. Altered mental status due to metabolic encephalopathy. 2. Non Q myocardial infarction. 3. Polio in the left leg. 4. Chronic back pain. 5. Depression with anxiety. 6. Type 2 diabetes. 7. Acid reflux disease. 8. Hyperlipidemia. 9. Hypertension. 10. Abnormal chest x-ray with elevated right hemidiaphragm. 11. C-spine spondylosis. 12. B12 deficiency. 13. Coronary artery disease, medical management. 14. Diverticulosis. 15. History of deep venous thrombosis in the left leg. HISTORY: In brief please see the H and P that was done by Dr. Javier on 12/11/2018. In brief she is 88-year-old white female with above problems came to the hospital with altered mental status with underlying medical problems. The patient also has positive cardiac enzymes. The patient denies of any chest pain. HOSPITAL COURSE: The patient was admitted in [facility] with the following problems. 1. For metabolic encephalopathy. CT head is negative. Follow up she has came back to the [facility]. Apparently, she has a pseudo dementia with underlying depression. Continue on duloxetine. 2. Positive enzymes. Spoke to Dr. Smyth and basically she is not having any chest pain. EKG is negative. Continue on medical management. Family decided not to do any partial further workup. 3. Blood cultures were negative. The patient has been deconditioning with above problems, needs intensive rehab. 4. Living will DNR 1. The patient went back to the [facility] in a stable condition with the following instructions. LABS: Do the during this admission as follows CBC: White cell count 8.1, hematocrit 28, platelets 272,000 ABG: pH is 7.35, pCO2 60 C, PO2 124, and SMA 7. Sodium 140, potassium 3.1, chloride 97, BUN 12, creatinine 0.8, glucose 120. Echocardiography report: EF is 70%, diastolic dysfunction, pulmonary hypertension. CT head: Chronic microvascular ischemic changes. Chest x-ray poor inspiratory film. Elevation of right hemidiaphragm. DISCHARGE INSTRUCTIONS: 1. Oxygen 1 L as needed. 2. Incentive spirometry. 3. Out of the bed with physical therapy. 4. Crestor 40 daily, metformin 500 b.i.d., aspirin 81 mg daily, nitroglycerin as needed, Ranexa 500 p.o. b.i.d., Prilosec 40 daily Zofran as needed, duloxetine 30 p.o. b.i.d., Aldactone 25 at bedtime, glimepiride 4 mg with lunch, lisinopril 20 mg daily, Atarax 25 at bedtime MiraLAX 17 g as needed. 5. Living will DNR. cc: Ronnie Tuttle MD
[2018-12-18 11:47] VITALS: BP 155/64
--- NOTE | 2018-12-20 13:22 | ED EKG INTERP ---
This chart was entered by Trice Bailey Scribe, acting as scribe for Bartolo Domingo DO. EKG Interpretation - EKG Time of EKG reading by physician:: 18:04 EKG Read and Signed by:: Bartolo Domingo EKG Interpretation (*Must complete 3 of following elements*): Abnormal Rate: 85 Rhythm: SR w/1st degree av block [place]: normal [place] Interval: shortened <Bartolo Domingo - Last Filed: 12/11/18 19:07> - EKG EKG Interpretation (*Must complete 3 of following elements*): Abnormal <Bartolo Jackson - Last Filed: 12/11/18 19:15> Attestation - Physician/ MATT Attestation Patient care was provided by Advanced Practice Provider:: No The physician spent face to face time with patient:: Yes Advanced Practice Provider documentation review:: Supervising physician onsite and consulted in the evaluation and care of this patient. The physician did have a face to face encounter with the patient. <Bartolo Jackson - Last Filed: 12/11/18 19:15> This chart was documented by the indicated scribe, (Trice Bailey Scribe) and accurately reflects the services I performed and decisions made by , Bartolo Domingo DO, as attested by the provider's signature.
== END 2018-12-18 13:39 | DRG 280 ==
LOC: SUPCPDRO → ED 15:03 → EDIPHOLD 17:59 → 3S 21:22 → 4N 12-15 11:00
PROVIDERS: ADMIT Internal Medicine; ATTEND Internal Medicine
CPT/HCPCS: 51701; 70450; 71020; 71046; 80048; 80053; 80061; 81001; 82550; 82553; 82805; 82948; 83605; 83721; 83735; 84484; 85025; 87040; 93005; 93010; 93306; 94640; 94761; 94799; 96360; 97162; 97530; 99285; A9270; J1650; J3480; J7030; J7040; P9612; XXXXX

== ENCOUNTER 2019-01-25 19:46 | Inpatient (IN) ==
[2019-01-25] MEDS ORDERED: D50W SYRINGE IV ONE (19:51)
--- NOTE | 2019-01-25 21:55 | Diag Imaging Result Doc PS360 ---
CT HEAD W/O CONTRAST - 01/25/2019 INDICATION: poss CVA COMPARISON: 12/11/2018 FINDINGS: Stable diffuse cerebral atrophy. Stable moderate periventricular white matter chronic microvascular disease. No intracranial mass or hemorrhage. The skull is intact. The sinuses are clear. IMPRESSION: No acute process. This exam was performed using automated exposure control, adjustment of mA or kV according to patient size, and/or use of iterative reconstruction technique Electronically signed by Saravanan Monroe 01/25/2019 9:53 PM
--- NOTE | 2019-01-25 22:02 | Diag Imaging Result Doc PS360 ---
CHEST-PORTABLE - 01/25/2019 INDICATION: ams/ being treated for PNA COMPARISON: 12/11/2018 FINDINGS: Stable severely low lung volumes. Stable right hemidiaphragm elevation. Stable nonspecific bibasilar atelectasis. IMPRESSION: Nonspecific findings. Electronically signed by Saravanan Monroe 01/25/2019 9:59 PM
[2019-01-25 22:05] LABS: BASO# 0.02 X1000 (0.0-0.2); BASO% 0.2 % (0.0-0.8); EOS# 0.02 X1000 (0.0-0.7); EOS% 0.2 % (0.0-10.0); HEMATOCRIT 29.7 % (37.0-47.0); HEMOGLOBIN 8.7 g/dL (12.0-16.0); IMM GRAN# 0.03 X1000 (0.0-0.04); IMM GRAN% 0.2 % (0.0-0.5); LYMPH# 1.48 X1000 (1.2-3.4); LYMPH% 11.6 % (20.5-51.1); MCH 20.8 PG (27-31); MCHC 29.3 g/dL (33-37); MCV 71.1 FL (81-99); MONO# 0.86 X1000 (0.11-0.59); MONO% 6.7 % (1.7-9.3); MPV 10.8 FL (7.4-10.4); NEUT# 10.36 X1000 (1.4-6.5); NEUT% 81.1 % (42.2-75.2); PLT 354 X1000 (130-400); RBC 4.18 XMIL (4.2-5.4); RDW 20.8 % (11.5-14.5); WBC 12.77 X1000 (4.8-10.8)
[2019-01-25 22:53] LABS: ALB/GLOB RATIO 1.3; CALCIUM 10.4 mg/dL (8.8-10.2); CREATININE 1.1 mg/dL (0.5-0.9); POTASSIUM 2.6 mmol/L (3.5-5.1); TOTAL BILIRUBIN 0.17 mg/dL (0.20-1.00); TOTAL PROTEIN 5.3 g/dL (6.3-8.3)
[2019-01-25] MEDS ORDERED: POTASSIUM CHLORIDE 20% LIQUID PO ONE (23:23)
[2019-01-25] MEDS ORDERED: NS 1,000 ML ONE (23:40)
[2019-01-26 00:12] LABS: URINE SOURCE CATH
[2019-01-26 00:15] LABS: BILIRUBIN URINE NEGATIVE (NEGATIVE); BLOOD URINE SMALL (NEGATIVE); COLOR YELLOW; GLUCOSE URINE NEGATIVE (NEGATIVE); KETONE URINE NEGATIVE (NEGATIVE); LEUKOCYTES URINE NEGATIVE (NEGATIVE); NITRITE URINE NEGATIVE (NEGATIVE); PROTEIN URINE 200 mg/dL (NEGATIVE); SP GRAVITY URINE 1.017; TURBIDITY URINE CLEAR (CLEAR); UROBILINOGEN URINE NORMAL (NORMAL)
[2019-01-26 00:16] LABS: UR EPITHELIAL CELLS <10 /HPF (<10); URINE BACTERIA NEGATIVE /HPF; URINE RBC <10 /HPF (<10); URINE WBC <10 /HPF (<10)
[2019-01-26] MEDS ORDERED: MAXIPIME 1 GM in NS 50 ML IV ONE (00:18)
[2019-01-26] MEDS ORDERED: NS 1,000 ML IV ONE (00:18)
[2019-01-26] MEDS ORDERED: POTASSIUM CHLORIDE 60 MEQ in NS 500 ML IV ONE (00:25)
[2019-01-26] MEDS ORDERED: NS 1,000 ML IV SCH (00:36)
[2019-01-26] MEDS ORDERED: ZYVOX 600 MG/D5W 600 MG/300 ML IVPB IV SCH (00:36)
--- NOTE | 2019-01-26 00:37 | PROVIDER DOCUMENTATION ---
This chart was entered by Susie Virk Scribe, acting as scribe for Kofi Domingo MD. HPI-Neurological Disorder - General Chief Complaint: Low Blood Sugar Stated Complaint: poss stroke Time Seen by Provider: 01/25/19 20:07 Source: family, EMS Allergies/Adverse Reactions: Patient Allergies Allergy/AdvReac Type Severity Reaction Status Date / Time codeine Allergy Unknown Verified 12/11/18 15:48 Penicillins Allergy ANAPHYLAXIS Verified 12/11/18 15:48 meperidine HCl * AdvReac NAUSEA Verified 12/11/18 15:48 [From Demerol] morphine AdvReac NAUSEA/VOMI Verified 12/11/18 15:48 TING promethazine HCl * AdvReac NAUSEA Verified 12/11/18 15:48 [From Phenergan] pseudoephedrine AdvReac Unknown Verified 12/11/18 15:48 Home Medications: Home Medication List Medication Instructions Recorded Confirmed Last Taken Type Aspirin 81 mg PO HS 05/11/12 12/11/18 1 Day Ago History ~12/10/18 Metformin [Glucophage] 500 mg PO BID 05/11/12 12/11/18 1 Day Ago History ~12/10/18 ROSUVAstatin [Crestor] 40 mg PO QHS 05/11/12 12/11/18 1 Day Ago History ~12/10/18 Nitroglycerin 0.4 mg SL PRN PRN 10/31/13 12/11/18 3 Months Ago History ~06/18/15 Ranolazine E.r. [Ranexa] 500 mg PO BID 10/31/13 12/11/18 1 Day Ago History ~12/10/18 Omeprazole 40 mg PO QHS 08/30/15 12/11/18 1 Day Ago History ~12/10/18 Ondansetron HCl [Zofran] 4 mg PO TID PRN PRN 07/07/16 12/11/18 12/18/17 03:00 H istory Duloxetine [Cymbalta] 30 mg PO BID capsule 12/21/17 12/11/18 1 Day Ago Rx ~12/10/18 Glimepiride 4 mg PO WLUNCH 11/08/18 12/11/18 1 Day Ago History ~12/10/18 Hydroxyzine [Atarax] 25 mg PO HS 11/08/18 12/11/18 1 Day Ago History ~12/10/18 LISINOpril [Prinivil] 20 mg PO HS 11/08/18 12/11/18 1 Day Ago History ~12/10/18 Polyethylene Glycol 3350 [Miralax] 17 gm PO Q3DAYS 11/08/18 12/11/18 3 Days Ago History ~12/08/18 Spironolactone 25 mg PO HS 11/08/18 12/11/18 1 Day Ago History ~12/10/18 - History of Present Illness-Neuro Nature of Presenting Problem: 88yof presents to ED by EMS cc AMS and blood sugar less than 20. 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 Son is at bedside and reports pt was diagnosed with pneumonia 2 day ago and is on ABT. Pt has hx of polio, dementia and DM, HTN and GERD. Onset/Duration: reports: 2 days ago Timing: reports: still present Character of Altered Mental Status: reports: disoriented, confused, decreased responsiveness Any recent trauma/injury?: reports: none Character of Deficits: reports: new weakness Cognitive Baseline: poor alertness Review of Systems - Adult - REVIEW OF SYSTEMS - ADULT ROS:: unobtainable per condition Constitutional: reports: no symptoms reported Eyes: reports: no symptoms reported Ears, Nose, Mouth & Throat: reports: no symptoms reported Cardiovascular: reports: no symptoms reported Respiratory: reports: no symptoms reported Gastrointestinal: reports: no symptoms reported Genitourinary: reports: no symptoms reported Musculoskeletal: reports: no symptoms reported Integumentary: reports: no symptoms reported Neurological: reports: no symptoms reported Psychiatric: reports: no symptoms reported Endocrine: reports: no symptoms reported Hematologic/Lymphatic: reports: no symptoms reported Allergic/Immunologic: reports: no symptoms reported All Other Systems: Reviewed and Negative Past History - Adult - PAST MEDICAL HISTORY-ADULT Review of Records: reports: Nursing Assessment Review, Medications Reviewed, Social history reviewed & non-contributory. Major Childhood Illnesses: reports: Polio Cardiovascular: reports: A-Fib, HTN Respiratory: reports: denies history Gastrointestinal: reports: GERD, other (hiatal hernia) Obstetrical/Gynecological: reports: denies history Genitourinary: reports: denies history Musculoskeletal: reports: chronic pain, intervertebral disc disease Neurological: reports: denies history Psychiatric: reports: depression Endocrine/Immune: reports: Diabetes, denies history Other Conditions: reports: denies history, skin disorder (polio) - PRIOR SURGERIES/PROCEDURES Surgical/Procedure History: reports: hysterectomy, hernia repair, back/neck - IMMUNIZATION STATUS Childhood Immunizations: See Nurse Assessment Flu Vaccine: See Nurse Assessment - FAMILY HISTORY Family History: reviewed, not pertinent Physical Exam- Neurological - Physical Exam-Neuro Initial Vital Signs Reviewed: Yes General Appearance: negative: anxious, combative Eye Exam: bilateral eye: normal inspection, PERRL HENMT: moist mucous membranes, normal ENT inspection, TMs normal, pharynx normal . negative: angioedema, dental decay Head Injury: no evidence of injury. negative: active bleeding, Johnson's Sign, contusions, ecchymosis, flap, lacerations, raccoon eyes Neck: non-tender, full range of motion, supple, normal inspection. negative: Brudzinski's sign, carotid bruit, C-spine tenderness Respiratory: chest non-tender, lungs clear, normal breath sounds, no pleuratic chest pain, no respiratory distress, no accessory muscle use. negative: crackles, rales, rhonchi, stridor, wheezing Cardiovascular: normal peripheral pulses, regular rate, rhythm, no edema, no gallop, no JVD, no murmur. negative: bradycardia, tachycardia Abdominal Exam: normal bowel sounds, non tender, soft, no organomegaly. negative: rigid, rebound, tenderness Lymphatic: no adenopathy. negative: enlargement, striations Motor/Sensory: weak motor strength LLE (spastic weakness due to previous polio) Integumentary: normal color, normal turgor, warm/dry. negative: diaphoresis, erythema, signs of IVDA, jaundice Progress - PLAN OF CARE/RESULTS Progress/Plan/Lab Results: Vital Signs - 8 hr 01/25/19 20:08 01/25/19 20:15 01/25/19 20:17 Temperature 97.9 F Pulse Rate 80 Respiratory Rate 19 Blood Pressure 110/56 110/56 122/60 O2 Sat by Pulse Oximetry 98 91 L 100 01/25/19 20:33 01/25/19 20:47 01/25/19 21:48 Temperature Pulse Rate 76 68 Respiratory Rate 20 25 H Blood Pressure 110/61 122/104 120/112 O2 Sat by Pulse Oximetry 100 99 95 01/25/19 22:02 01/25/19 22:18 01/25/19 22:48 Temperature Pulse Rate 78 Respiratory Rate 26 H 21 Blood Pressure 115/78 108/71 94/64 O2 Sat by Pulse Oximetry 97 87 L 98 01/25/19 23:02 01/25/19 23:17 01/25/19 23:18 Temperature Pulse Rate 75 78 79 Respiratory Rate 28 H 23 25 H Blood Pressure 90/45 89/44 87/64 O2 Sat by Pulse Oximetry 100 100 94 L 01/25/19 23:32 01/25/19 23:35 01/25/19 23:50 Temperature Pulse Rate 77 76 112 H Respiratory Rate 25 H 39 H 24 Blood Pressure 69/50 77/65 150/135 O2 Sat by Pulse Oximetry 99 100 91 L Laboratory Results - last 24 hr 01/25/19 01/25/19 01/25/19 19:51 20:28 21:45 WBC 12.77 H RBC 4.18 L Hgb 8.7 L Hct 29.7 L MCV 71.1 L MCH 20.8 L MCHC 29.3 L RDW Std Deviation 20.8 H Plt Count 354 MPV 10.8 H Immature Gran % (Auto) 0.2 Neut % (Auto) 81.1 H Lymph % (Auto) 11.6 L Edgar % (Auto) 6.7 Eos % (Auto) 0.2 Baso % (Auto) 0.2 Immature Gran # (Auto) 0.03 Neut # (Auto) 10.36 H Lymph # (Auto) 1.48 Edgar # (Auto) 0.86 H Eos # (Auto) 0.02 Baso # (Auto) 0.02 Sodium Potassium Chloride Carbon Dioxide Anion Gap BUN Creatinine Estimated GFR/1.73 m2 BUN/Creatinine Ratio Glucose POC Glucose 20 L D 337 H D Calculated Osmolality Calcium Total Bilirubin AST ALT Alkaline Phosphatase Total Protein Albumin Globulin Albumin/Globulin Ratio Plasma Lactate Urine Source Urine Color Urine Turbidity Urine pH Ur Specific Denton Urine Protein Ur Glucose (Stick) Ur Ketones (Stick) Urine Blood Urine Nitrite Urine Bilirubin Urobilinogen Dipstick Urine Leukocytes Urine WBC (Auto) Urine RBC (Auto) U Epithel Cells (Auto) Urine Bacteria (Auto) 01/25/19 01/25/19 01/25/19 21:45 21:45 22:30 WBC RBC Hgb Hct MCV MCH MCHC RDW Std Deviation Plt Count MPV Immature Gran % (Auto) Neut % (Auto) Lymph % (Auto) Edgar % (Auto) Eos % (Auto) Baso % (Auto) Immature Gran # (Auto) Neut # (Auto) Lymph # (Auto) Edgar # (Auto) Eos # (Auto) Baso # (Auto) Sodium 140 Potassium 2.6 L D Chloride 94 L Carbon Dioxide 36 H Anion Gap 10 BUN 22 Creatinine 1.1 H Estimated GFR/1.73 m2 47 BUN/Creatinine Ratio 20 Glucose 168 H D POC Glucose 177 H Calculated Osmolality 287 Calcium 10.4 H Total Bilirubin 0.17 L AST 21 ALT 12 Alkaline Phosphatase 57 Total Protein 5.3 L Albumin 3.0 L Globulin 2.3 Albumin/Globulin Ratio 1.3 Plasma Lactate 1.2 Urine Source Urine Color Urine Turbidity Urine pH Ur Specific Denton Urine Protein Ur Glucose (Stick) Ur Ketones (Stick) Urine Blood Urine Nitrite Urine Bilirubin Urobilinogen Dipstick Urine Leukocytes Urine WBC (Auto) Urine RBC (Auto) U Epithel Cells (Auto) Urine Bacteria (Auto) 01/25/19 01/26/19 23:55 00:05 WBC RBC Hgb Hct MCV MCH MCHC RDW Std Deviation Plt Count MPV Immature Gran % (Auto) Neut % (Auto) Lymph % (Auto) Edgar % (Auto) Eos % (Auto) Baso % (Auto) Immature Gran # (Auto) Neut # (Auto) Lymph # (Auto) Edgar # (Auto) Eos # (Auto) Baso # (Auto) Sodium Potassium Chloride Carbon Dioxide Anion Gap BUN Creatinine Estimated GFR/1.73 m2 BUN/Creatinine Ratio Glucose POC Glucose 129 H Calculated Osmolality Calcium Total Bilirubin AST ALT Alkaline Phosphatase Total Protein Albumin Globulin Albumin/Globulin Ratio Plasma Lactate Urine Source CATH Urine Color YELLOW Urine Turbidity CLEAR Urine pH 7.0 Ur Specific [place] 1.017 Urine Protein 200 A Ur Glucose (Stick) NEGATIVE Ur Ketones (Stick) NEGATIVE Urine Blood SMALL A Urine Nitrite NEGATIVE Urine Bilirubin NEGATIVE Urobilinogen Dipstick NORMAL Urine Leukocytes NEGATIVE Urine WBC (Auto) <10 Urine RBC (Auto) <10 U Epithel Cells (Auto) <10 Urine Bacteria (Auto) NEGATIVE Orders Category Date Time Status FSBS [Finger Stick Blood Sugar (ED)] DIRECTED Care 01/25/19 22:07 Active Diabetic Diet Diet 01/25/19 21:26 Active CHEST-PORTABLE [RAD] Stat Exams 01/25/19 19:[address] HEAD W/O CONTRAST [CT] Stat Exams 01/25/19 19:48 Completed BLOOD CULTURE [BLDCUL] Stat Lab 01/25/19 21:45 Results CBC WITH ELECTRONIC DIFF [HEME] Stat Lab 01/25/19 21:45 Completed COMPREHENSIVE METABOLIC PANEL [CHEM] Stat Lab 01/25/19 21:45 Completed LACTATE, PLASMA [CHEM] Stat Lab 01/25/19 21:45 Completed UA Reflex [URINALYSIS W/POSS RFLX CULT] [URINALYSIS] Lab 01/26/19 00:03 Completed Stat 0.9% Sodium Chloride Inj [Ns] 1,000 ml Med 01/25/19 23:40 Discontinued .ROUTE As directed 0.9% Sodium Chloride Inj [Ns] 1,000 ml Med 01/26/19 00:18 Active IV 999 mls/hr CefEPIME [Maxipime] 1 gm Med 01/26/19 00:18 Active 0.9% Sodium Chloride Inj [Ns] 50 ml IV NOW Dextrose 50% Syringe [D50w Syringe] Med 01/25/19 19:51 Discontinued 100 ml IV NOW ONE Potassium Chloride 20% Liquid Med 01/25/19 23:23 Discontinued 40 meq PO NOW ONE Potassium Chloride 60 meq Med 01/26/19 00:25 Active 0.9% Sodium Chloride Inj [Ns] 500 ml IV ONCE EKG [EKG] Stat Ther 01/25/19 20:36 Ordered Result Diagrams: 01/25/19 21:45 01/25/19 21:45 - REASSESSMENT Reassessment #1 Time Reassessed: 20:43 Status: improving (pt blood sugar is now <300 and she is back to baseline per family) - EKG 1 Time of EKG reading by physician:: 21:27 EKG Read and Signed by:: Kofi Domingo EKG Interpretation (*Must complete 3 of following elements*): Abnormal (cannot rule out septal infarct, age undetermined) Rate: 72 Rhythm: normal sinus rhythm QRS: LVH (moderate voltage criteria) - XRAY 1 XRAY: Bilateral XRAY Study: Chest Impression: See EMR Report (IMPRESSION: Nonspecific findings. Electronically signed by Saravanan Monroe 01/25/2019 9:59 PM) - CT/MRI 1 CT Study: Head Impression: See EMR Report (IMPRESSION: No acute process. This exam was performed using automated exposure control, adjustment of mA or kV according to patient size, and/or use of iterative reconstruction technique Electronically signed by Saravanan Monroe 01/25/2019 9:53 PM) - CONSULTS/PCP/HOSPITALIST Notification #1 *Consult/PCP/Hospitalist*: DR Elliot FUNG Time Discussed: 00:15 Consult Disposition: Admit (ICU) Departure - Departure Date of Disposition Decision: 01/26/19 Time of Disposition Decision: 00:31 DIAGNOSIS: Hypoglycemia associated with diabetes, Hypotension, Leukocytosis, Hypokalemia, Anemia, Protein malnutrition Disposition: ADMITTED INPATIENT 09 Certified Medical Emergency: Emergent Condition: Fair Referrals and Follow-Ups: Eloy Tuttle MD [Primary Care Provider] - - Critical Care Note This patient required my direct & personal management of CC.: Yes Total Time (mins): 30 Critical Care Statement: This patient required my direct personal management to treat or rule out processes, the absence of which, could potentiallly result in sudden, clinically significant life or limb threatening deterioration. Attestation - Physician/ MATT Attestation Patient care was provided by Advanced Practice Provider:: No The physician spent face to face time with patient:: Yes Advanced Practice Provider documentation review:: Supervising physician onsite and consulted in the evaluation and care of this patient. The physician did have a face to face encounter with the patient. - NIH Stroke Scale NIH Type: Discharge Evaluation Level of Consciousness: 0-Alert LOC Questions (ask month and age): 0-Answers Both Correctly LOC Commands (ask to open & close eyes;make a fist, let go): 0-Obeys Both Correctly Best Gaze (horizontal eye movement): 0-Normal Visual (use finger movement, counting or visual threat): 0-No Visual Loss Facial Palsy (show teeth or raise eyebrows & close eyes tght: 0-Symmetrical Movement Motor Function-left arm: 1-Drift Motor Function-right arm: 0-Normal Motor Function-left le-Drift Motor Function-right le-Normal Limb Ataxia(zlyriu-chlr-rpfzjr, or heel to cruz): 0-No Ataxia Sensory(pin prick to face,arms,trunk,legs-compare side/side): 0-No Ataxia Best Language(name item/read sentence.Ex-Down to Earth): 0-No Aphasia Dysarthria(Pt read words or say words Ex.Mama,Tip-Top,Thanks: 0-Normal Articulation Extinction and Inattention: 0-Normal NIH Total Score: 2 NIH Scale Untestable Comment: PRIOR POLIO RESIDUAL SPASTIC WEKNESS ELFT ARM AND LEG LONGSTANDING This chart was documented by the indicated scribe, (Susie Virk Scribe) and accurately reflects the services I performed and decisions made by me, Kofi Domingo MD, as attested by the provider's signature.
[2019-01-26] MEDS ORDERED: VANCOMYCIN IV PER PHARMACY MISC SCH (00:45)
[2019-01-26] MEDS ORDERED: D5 NS 1,000 ML IV ONE (01:25)
[2019-01-26] MEDS: LOVENOX SUBQ SCH (01:55)
[2019-01-26] MEDS ORDERED: VANCOMYCIN 1,700 MG in NS 250 ML IV ONE (02:00)
[2019-01-26] MEDS ORDERED: ZOFRAN IV PRN (02:06)
[2019-01-26] MEDS ORDERED: NITROGLYCERIN SL PRN (02:06)
[2019-01-26] MEDS ORDERED: ZOFRAN PO PRN (02:06)
--- NOTE | 2019-01-26 02:16 | HISTORY AND PHYSICAL ---
PRIMARY CARE PHYSICIAN: Dr. Tuttle. CHIEF COMPLAINT: Hypoglycemia. HISTORY OF PRESENT ILLNESS: This is an 88-year-old female with multiple medical conditions including coronary artery disease, chronic back pain, depression and diabetes mellitus type 2, who was brought to the emergency department by ambulance because of AMS, blood sugar less than 20. The patient is obtunded and not able to provide any pertinent information, and history is taking from ER notes and from the ER physician information. As per report, apparently the patient was seen 2 hours before the patient was transported to the emergency department here at [facility]. It was reported by son that over there she was diagnosed with pneumonia 2 days ago and she is on antibiotics, but we do not know exactly what she has. I was called for admissions because the blood sugar is low, and the last blood sugar that we have is 129 and the patient is on glipizide. PAST MEDICAL HISTORY: 1. Coronary artery disease. 2. Polio. The patient is apparently bed bound. 3. Chronic back pain. 4. Depression with anxiety. 5. Diabetes mellitus type 2. 6. Gastroesophageal reflux disease. 7. Hyperlipidemia. 8. Hypertension. 9. History of chronically elevated right diaphragm . 10. History of B12 deficiency. PAST SURGICAL HISTORY: 1. Karyn fundoplication. 2. Hysterectomy. 3. Back surgery. 4. Bilateral cataract surgery. 5. History of left ankle surgery. 6. Diverticulosis. SOCIAL HISTORY: The patient lives in a group home. She has a son who is active in her care. As per previous records no definite history of tobacco or alcohol use. ALLERGIES: The patient is allergic to codeine, penicillin, omeprazole, and morphine. REVIEW OF SYSTEMS: It is not possible to obtain because of the situation with the patient. PHYSICAL EXAMINATION: VITAL SIGNS: Temperature 97.9 degrees, heart rate 112, respiratory rate 24, blood pressure 150/35, O2 saturation is 92% on room air. GENERAL: This is a chronically ill-appearing 88-year-old female lying in bed in no acute distress. HEENT: Head is normocephalic and atraumatic. Mucous membranes are dry. NECK: No JVD noted. No carotid bruits. No lymphadenopathy. No thyromegaly. CARDIOVASCULAR: S1, S2 heard. No murmurs, gallops or rubs. Regular rate and rhythm. RESPIRATORY: Minimal coarse breath sounds noted in both bases. The patient not using any accessory muscles or having work of breathing. ABDOMEN: A little bit distended but nontender to palpation. No signs of peritoneal irritation. EXTREMITIES: No clubbing or cyanosis or edema. There is lateral deviation to the left ankle and foot secondary to polio. NEUROLOGICAL: The patient moves all 4 extremities, but is weak in the left arm and leg. The patient is basically very lethargic, apparently she moves upper extremities spontaneously. LABORATORY DATA: White cell count 12.77, hemoglobin 10.7, hematocrit 29.7, platelets 354,000, with BMP remarkable for potassium of 2.6, and glucose 168. Last Accu-Chek was 129. ASSESSMENT: 1. History of coronary artery disease and pneumonia. 2. Hypertension. 3. Hypokalemia. 4. Hypercholesterolemia. 5. Diabetes mellitus type 2. PLAN: 1. This patient initially was admitted to the hospital for low blood sugars, and she is on glipizide so I think at this point what we can do is start D5 normal saline at 75 cc/ht. Also we have found that this patient has a low potassium and we are going to replenish. Also we found out the blood pressure was low, but fortunately the blood pressures are coming up. At this point we will continue with the same amount of fluid. 2. Also for diabetes mellitus type 2 we will start insulin. I do not think we will need to use any sliding scale insulin considering that this patient's blood sugar has been low. 3. Hypercholesteremia. We will continue home medications. 4. At this point we will monitor this patient closely. 5. Patient is being treated for PNA. I think she may have developed sepsis so will start broad spectrum antibiotics and will go from there. cc: MD Ronnie Franco MD MTDD
[2019-01-26 06:52] LABS: BASO# 0.01 X1000 (0.0-0.2); BASO% 0.1 % (0.0-0.8); EOS# 0.05 X1000 (0.0-0.7); EOS% 0.5 % (0.0-10.0); HEMATOCRIT 28.6 % (37.0-47.0); HEMOGLOBIN 8.4 g/dL (12.0-16.0); IMM GRAN# 0.04 X1000 (0.0-0.04); IMM GRAN% 0.4 % (0.0-0.5); LYMPH# 2.23 X1000 (1.2-3.4); LYMPH% 20.5 % (20.5-51.1); MCH 21.2 PG (27-31); MCHC 29.4 g/dL (33-37); MCV 72.2 FL (81-99); MONO# 1.25 X1000 (0.11-0.59); MONO% 11.5 % (1.7-9.3); MPV 11.3 FL (7.4-10.4); NEUT# 7.29 X1000 (1.4-6.5); PLT 335 X1000 (130-400); RBC 3.96 XMIL (4.2-5.4); RDW 21.3 % (11.5-14.5); WBC 10.87 X1000 (4.8-10.8)
[2019-01-26 06:57] LABS: CALCIUM 9.4 mg/dL (8.8-10.2); CREATININE 1.1 mg/dL (0.5-0.9); POTASSIUM 3.5 mmol/L (3.5-5.1)
--- NOTE | 2019-01-26 07:05 | EKG Report ---
Test Performed on : 01/25/2019 9:25:56 PM Test Reason : possible arrhythmia Blood Pressure : / mmHG Vent. Rate : 072 BPM Atrial Rate : 072 BPM P-R Int : 194 ms QRS Dur : 084 ms QT Int : 448 ms P-R-T Axes : 012 -12 074 degrees QTc Int : 490 ms Normal sinus rhythm. Moderate voltage criteria for LVH, may be normal variant Cannot rule out Septal infarct , age undetermined Abnormal ECG When compared with ECG of 14-DEC-2018 07:46, Nonspecific T wave abnormality has replaced inverted T waves in Inferior leads Nonspecific T wave abnormality, worse in Lateral leads Unconfirmed Result
--- NOTE | 2019-01-26 07:11 | Diag Imaging Result Doc PS360 ---
EXAM: CT THORAX W/O CONTRAST 01/26/2019 HISTORY: pna TECHNIQUE: This exam was performed using automated exposure control, adjustment of mA or kV according to patient size, and/or use of iterative reconstruction technique. COMMENT: The current examination is compared with previous study of 11/01/2012. There is a nodule arising from the inferior pole of the right thyroid lobe measuring 2.7 cm in greatest dimension with internal punctate calcifications. At the time the previous examination this measured 2.6 cm in AP dimension. There are vascular calcifications in the aorta and brachiocephalic arteries. There is extensive coronary calcification. There is a small pleural fluid collection on the left and some pleural fluid also on the right. There is opacification and volume loss in the right lower lobe which is worse than on the previous study. There are air bronchograms. There is some minimal atelectasis in the left lower lobe which was also not present previously. There is minimal platelike opacity in the right middle, lobe some of which was present at the time the previous study. This may be due to fibrosis. The liver is somewhat inverted with the gallbladder line anteriorly and superiorly. No acute abnormalities are demonstrated in the visualized portion of the abdomen. There are spondylotic changes in the thoracic spine. There is no evidence of significant adenopathy. IMPRESSION: Small bilateral pleural fluid collections. Atelectasis, particularly in the right lower lobe. The possibility of pneumonia cannot be excluded. Right thyroid nodule with calcifications. Further evaluation with ultrasonography may be desirable. Electronically signed by Shon Christensen 01/26/2019 7:08 AM
[2019-01-26] MEDS: PRILOSEC PO SCH (07:16)
[2019-01-26] MEDS: RANEXA PO SCH ×2 (08:42→20:25)
[2019-01-26] MEDS: CYMBALTA PO SCH ×2 (08:42→20:24)
[2019-01-26] MEDS: MAXIPIME 1 GM in NS 50 ML IV SCH (13:28)
[2019-01-26] MEDS: D5 NS 1,000 ML IV SCH (15:49)
[2019-01-26] MEDS: HALDOL IV PRN (20:24)
[2019-01-26] MEDS: CRESTOR PO SCH (20:24)
[2019-01-27] MEDS: LOVENOX SUBQ SCH (00:30)
[2019-01-27] MEDS: MAXIPIME 1 GM in NS 50 ML IV SCH ×2 (00:31→14:24)
[2019-01-27] MEDS: HALDOL IV PRN (02:51)
[2019-01-27] MEDS: D5 NS 1,000 ML IV SCH (04:20)
[2019-01-27 05:10] LABS: ALLEN TEST YES; BE 1.7 mmoll (-3.0-3.0); BLOOD TYPE ARTERIAL; HCO3-(ACT) 26.3 mmoll (20.0-26.0); O2HB 96.1 % (95.0-99.0); PO2(98.6) 107 mmHg (60-100); SAMPLE BLOOD; SAO2 98.1 % (95.0-100.0); THB 8.7 g/dL (11.5-17.4); pH(98.6) 7.27 (7.35-7.45)
[2019-01-27 05:11] LABS: PCO2(98.6) 64 mmHg (35-45)
[2019-01-27 05:12] LABS: MODALITY CANNULA
[2019-01-27] MEDS: PRILOSEC PO SCH (06:04)
[2019-01-27 06:28] LABS: BASO# 0.02 X1000 (0.0-0.2); BASO% 0.2 % (0.0-0.8); EOS# 0.02 X1000 (0.0-0.7); EOS% 0.2 % (0.0-10.0); HEMATOCRIT 28.7 % (37.0-47.0); IMM GRAN# 0.04 X1000 (0.0-0.04); IMM GRAN% 0.3 % (0.0-0.5); LYMPH# 0.59 X1000 (1.2-3.4); LYMPH% 4.9 % (20.5-51.1); MCH 20.3 PG (27-31); MCHC 27.9 g/dL (33-37); MCV 72.8 FL (81-99); MONO# 0.49 X1000 (0.11-0.59); MONO% 4.1 % (1.7-9.3); MPV 11.3 FL (7.4-10.4); NEUT# 10.91 X1000 (1.4-6.5); NEUT% 90.3 % (42.2-75.2); PLT 328 X1000 (130-400); RBC 3.94 XMIL (4.2-5.4); RDW 21.5 % (11.5-14.5); WBC 12.07 X1000 (4.8-10.8)
[2019-01-27 06:42] LABS: CALCIUM 9.5 mg/dL (8.8-10.2); POTASSIUM 3.3 mmol/L (3.5-5.1)
[2019-01-27] MEDS: CYMBALTA PO SCH ×2 (09:00→21:03)
[2019-01-27] MEDS: RANEXA PO SCH ×2 (09:00→21:02)
[2019-01-27] MEDS ORDERED: D50W SYRINGE IV ONE (09:27)
[2019-01-27 10:19] LABS: LYMPHS 6 % (21-51); MONO 5 % (1-9); SEGS 89 % (42-75)
[2019-01-27 10:20] LABS: ANISOCYTOSIS 3+; MICROCYTOSIS 3+; POIKILOCYTOSIS 2+; TARGET CELLS 2+
[2019-01-27] MEDS ORDERED: HUMULIN R SUBQ SCH (11:00)
[2019-01-27] MEDS: D5 1/2 NS + KCL 20 MEQ 1,000 ML IV SCH (12:30)
[2019-01-27] MEDS: HUMULIN R SUBQ SCH ×3 (12:48→21:03)
[2019-01-27] MEDS ORDERED: VANCOMYCIN 1,450 MG in NS 250 ML IV SCH (14:00)
[2019-01-27] MEDS ORDERED: SODIUM CHLORIDE 0.9% INJ SCH (14:45)
[2019-01-27] MEDS: PEPCID IV SCH (15:05)
--- NOTE | 2019-01-27 16:38 | PROGRESS NOTE ---
DATE: 01/27/2019 SUBJECTIVE: 88-year-old white female was brought in from [facility] for altered mental status, delirium with underlying dementia worsening since one of her daughter's was diagnosed with pancreatic cancer. She has hypoglycemia. Started on D5 normal saline. Last night she was extremely delirious requiring Haldol. She is retaining CO2, causing more confusion. Prior workup was reviewed. PAST MEDICAL HISTORY: Reviewed. PAST SURGICAL HISTORY: Reviewed. MEDICINES: Reviewed. ALLERGIES: Reviewed. PHYSICAL EXAMINATION: Temperature 94, degrees, pulse 20 blood pressure 124 x 73.HEENT: She is obtunded, easily arousable, restrained. Poor air entry. Heart: Sounds are tachycardic. Abdomen: Belly is soft, nontender. Neurological: No obvious neurological deficits. LABORATORY DATA: White cell count 12.0, hematocrit 28.7, platelets 328,000. ABG: pH is 7.27, pCO2 64, PO2 107 on 32%. Sodium 147, potassium 3.3, chloride 109, BUN 15, creatinine 1.0, glucose 300. Chest CT reported atelectasis in the right lower lobe. Right thyroid nodule has some calcifications. Chest x-ray, elevated right hemidiaphragm, stable lower lung volumes, CT head no acute process. ASSESSMENT AND PLAN: 1. Altered mental status with underlying dementia due to delirium. 2. CO2 narcosis. 3. Hypoglycemia, resolving. 4. Dehydration. 5. Type 2 diabetes. PLAN OF CARE: 1. Deep venous thrombosis prophylaxis with Lovenox. 2. Gastrointestinal prophylaxis with IV Protonix. 3. Change the IV fluids D5 half-normal saline 80 mL/hour. 4. Hold the Haldol in the morning time. 5. Elevated white cell count questionable pneumonia. Patient is on cefepime and vancomycin. Follow up on the labs in the morning. 6. Living will before was do not resuscitate. Will follow up. LEVEL OF DOCUMENTATION: 35 minutes. cc: Ronnie Tuttle MD
[2019-01-27] MEDS: CRESTOR PO SCH (21:02)
[2019-01-28] MEDS: MAXIPIME 1 GM in NS 50 ML IV SCH ×2 (01:28→13:57)
[2019-01-28] MEDS: HUMULIN R SUBQ SCH ×6 (01:29→20:56)
[2019-01-28] MEDS: D5 1/2 NS + KCL 20 MEQ 1,000 ML IV SCH ×2 (01:29→13:29)
[2019-01-28] MEDS: LOVENOX SUBQ SCH (04:03)
[2019-01-28] MEDS: PEPCID IV SCH ×2 (04:03→14:08)
[2019-01-28 04:49] LABS: ALLEN TEST YES; BE 4.8 mmoll (-3.0-3.0); BLOOD TYPE ARTERIAL; HCO3-(ACT) 28.7 mmoll (20.0-26.0); METHB 0.5 % (0.0-1.5); O2(CT) 10.4 mL/dL (15.0-23.0); O2HB 97.2 % (95.0-99.0); PO2(98.6) 130 mmHg (60-100); SAMPLE BLOOD; SAO2 98.8 % (95.0-100.0); THB 7.4 g/dL (11.5-17.4); pH(98.6) 7.25 (7.35-7.45)
[2019-01-28 04:51] LABS: MODALITY CANNULA; PCO2(98.6) 75 mmHg (35-45)
[2019-01-28] MEDS ORDERED: VANCOMYCIN 1,450 MG in NS 250 ML IV SCH (05:00)
[2019-01-28] MEDS: PRILOSEC PO SCH (06:25)
[2019-01-28 06:49] LABS: BASO# 0.04 X1000 (0.0-0.2); BASO% 0.3 % (0.0-0.8); EOS# 0.08 X1000 (0.0-0.7); EOS% 0.6 % (0.0-10.0); HEMATOCRIT 27.8 % (37.0-47.0); IMM GRAN# 0.08 X1000 (0.0-0.04); IMM GRAN% 0.6 % (0.0-0.5); LYMPH# 2.15 X1000 (1.2-3.4); LYMPH% 15.2 % (20.5-51.1); MCH 21.2 PG (27-31); MCHC 28.8 g/dL (33-37); MCV 73.5 FL (81-99); MONO# 2.04 X1000 (0.11-0.59); MONO% 14.4 % (1.7-9.3); MPV 11.7 FL (7.4-10.4); NEUT# 9.79 X1000 (1.4-6.5); NEUT% 68.9 % (42.2-75.2); PLT 281 X1000 (130-400); RBC 3.78 XMIL (4.2-5.4); RDW 22.1 % (11.5-14.5); WBC 14.18 X1000 (4.8-10.8)
[2019-01-28 07:16] LABS: AGAP 11; BUN 12 mg/dL (8-22); CHLORIDE 105 mmol/L (98-107); COSMO 290; CREATININE 0.8 mg/dL (0.5-0.9); ESTIMATED GFR > 60; GLUCOSE 158 mg/dL (70-104); POTASSIUM 2.9 mmol/L (3.5-5.1); SODIUM 144 mmol/L (136-145); TCO2 28 mmol/L (25-35)
[2019-01-28 07:17] LABS: CALCIUM 9.2 mg/dL (8.8-10.2)
--- NOTE | 2019-01-28 08:11 | Diag Imaging Result Doc PS360 ---
EXAM: CHEST-1 VIEW - 01/28/2019 HISTORY: SOB TECHNIQUE: Portable chest COMPARISON: 01/25/2019 FINDINGS: Inspiration is somewhat shallow. There is elevation right hemidiaphragm similar to prior. There is hazy atelectasis at the right base. There is some atelectasis plus or minus infiltrate at the left base which has increased. There is no pneumothorax identified. IMPRESSION: Hazy atelectasis at right base. Atelectasis plus or minus infiltrate at left base, increased from prior. Electronically signed by Ismael Prado 01/28/2019 8:08 AM
[2019-01-28] MEDS: CYMBALTA PO SCH ×2 (10:22→20:56)
[2019-01-28] MEDS: POTASSIUM CHLORIDE 20 MEQ/SWI 20 MEQ/100 ML IVPB IV SCH ×2 (10:23→12:56)
[2019-01-28] MEDS: RANEXA PO SCH ×2 (10:23→20:56)
--- NOTE | 2019-01-28 17:34 | PROGRESS NOTE ---
DATE: 01/28/2019 SUBJECTIVE: The patient is confused, not eating well, retaining CO2. She is depressed with underlying dementia. Blood sugars running a little bit high. OBJECTIVE: Vital signs: Temperature is 98 degrees. Vitals are stable. HEENT: Within normal limits. Neck: Supple. Respiratory: Poor air entry on the right side. Heart: Sounds are regular. Abdomen: Belly is soft, nontender. Neurologic: Restraints. No focal deficits. INVESTIGATIONS: CBC: White cell count 14, hematocrit 27, platelets 281,000. ABG, pH is 7.25, pCO2 75, PO2 130 on 32%. SMA 7: Potassium 2.9. Urine and blood cultures were negative. Chest x- ray: Worsening of left lower lobe atelectasis. ASSESSMENT: 1. Altered mental status due to delirium. 2. Chronic dementia. 3. Depression. 4. Hypoglycemia is better. PLAN: 1. Continue IV fluids. 2. Replace the potassium for hypokalemia. 3. Incentive spirometry. 4. Transfer out of the ICU. 5. Living will, DNR. 6. Continue IV fluids, DVT and GI prophylaxis as per order sheet. 7. Elevated white cell count. Possible hypostatic pneumonia. Currently on IV cefepime and vancomycin. LEVEL OF DOCUMENTATION: 25 minutes. cc: Ronnie Tuttle MD
[2019-01-28] MEDS: CRESTOR PO SCH (20:56)
[2019-01-29] MEDS: HUMULIN R SUBQ SCH ×6 (00:10→20:33)
[2019-01-29] MEDS: D5 1/2 NS + KCL 20 MEQ 1,000 ML IV SCH ×2 (00:14→13:53)
[2019-01-29] MEDS: MAXIPIME 1 GM in NS 50 ML IV SCH ×2 (00:14→13:53)
[2019-01-29] MEDS: PRILOSEC PO SCH (06:05)
[2019-01-29] MEDS ORDERED: CARDIZEM 100 MG/NS 100 MG/100 ML IVPB IV SCH (07:45)
[2019-01-29] MEDS ORDERED: CARDIZEM 125/NS 125 MG/125 ML IVPB IV SCH (08:00)
[2019-01-29] MEDS: LOVENOX SUBQ SCH (09:55)
[2019-01-29] MEDS: PEPCID IV SCH ×2 (09:55→20:32)
[2019-01-29] MEDS: CYMBALTA PO SCH ×2 (09:58→20:33)
[2019-01-29] MEDS: RANEXA PO SCH (09:59)
--- NOTE | 2019-01-29 10:03 | EKG Report ---
Test Performed on : 01/29/2019 06:02:42 AM Test Reason : AFIB Blood Pressure : / mmHG Vent. Rate : 113 BPM Atrial Rate : 119 BPM P-R Int : 000 ms QRS Dur : 084 ms QT Int : 276 ms P-R-T Axes : 000 -03 112 degrees QTc Int : 378 ms Atrial fibrillation. with rapid ventricular response. Nonspecific T wave abnormality Abnormal ECG When compared with ECG of 25-JAN-2019 21:25, (Unconfirmed) Atrial fibrillation. has replaced Sinus rhythm. Vent. rate has increased BY 41 BPM Confirmed by Daksha SORENSEN, Sudarshan Petit ([id number]) on 01/30/2019 7:28:17 PM
[2019-01-29 16:03] LABS: AGAP 11; BUN 9 mg/dL (8-22); CALCIUM 8.9 mg/dL (8.8-10.2); CHLORIDE 104 mmol/L (98-107); COSMO 282; CREATININE 0.8 mg/dL (0.5-0.9); ESTIMATED GFR > 60; GLUCOSE 164 mg/dL (70-104); POTASSIUM 3.7 mmol/L (3.5-5.1); SODIUM 140 mmol/L (136-145); TCO2 25 mmol/L (25-35)
[2019-01-29] MEDS: CARDIZEM 125/NS 125 MG/125 ML IVPB IV SCH (19:16)
[2019-01-29] MEDS: CRESTOR PO SCH (20:32)
[2019-01-29] MEDS: VANCOMYCIN 1,300 MG in NS 250 ML IV SCH (21:26)
[2019-01-30] MEDS: HUMULIN R SUBQ SCH ×6 (00:27→20:13)
[2019-01-30] MEDS: D5 1/2 NS + KCL 20 MEQ 1,000 ML IV SCH ×2 (04:16→15:33)
[2019-01-30] MEDS: CARDIZEM 125/NS 125 MG/125 ML IVPB IV SCH ×2 (05:34→21:46)
[2019-01-30 06:01] LABS: BASO# 0.02 X1000 (0.0-0.2); BASO% 0.2 % (0.0-0.8); EOS# 0.09 X1000 (0.0-0.7); EOS% 0.9 % (0.0-10.0); HEMATOCRIT 28.7 % (37.0-47.0); HEMOGLOBIN 8.3 g/dL (12.0-16.0); IMM GRAN# 0.09 X1000 (0.0-0.04); IMM GRAN% 0.9 % (0.0-0.5); LYMPH# 1.53 X1000 (1.2-3.4); LYMPH% 14.5 % (20.5-51.1); MCH 21.3 PG (27-31); MCHC 28.9 g/dL (33-37); MCV 73.8 FL (81-99); MONO# 0.84 X1000 (0.11-0.59); NEUT# 7.96 X1000 (1.4-6.5); NEUT% 75.5 % (42.2-75.2); PLT 223 X1000 (130-400); RBC 3.89 XMIL (4.2-5.4); RDW 21.9 % (11.5-14.5); WBC 10.53 X1000 (4.8-10.8)
--- NOTE | 2019-01-30 07:57 | Diag Imaging Result Doc PS360 ---
EXAM: CHEST-1 VIEW INDICATION: SOB TECHNIQUE: One view COMPARISON: 01/28/2019 FINDINGS: Lung volumes are low previous study. There is suggestion of a small to moderate-sized right pleural effusion and a smaller left effusion. These appear to be approximately stable. There is adjacent atelectasis and/or infiltrate at the lung bases similar to the previous study. No new consolidation is identified. Cardiac silhouette is stable. IMPRESSION: Essentially stable chest. Electronically signed by Raffy Bailey 01/30/2019 7:54 AM
[2019-01-30] MEDS: PEPCID IV SCH ×2 (08:35→20:13)
[2019-01-30] MEDS: LOVENOX SUBQ SCH (08:35)
[2019-01-30] MEDS: CYMBALTA PO SCH ×3 (09:33→20:13)
[2019-01-30] MEDS ORDERED: STERILE WATER INJ. INJ PRN (14:57)
[2019-01-30] MEDS ORDERED: GEODON IM PRN (14:57)
[2019-01-30] MEDS: CRESTOR PO SCH ×2 (20:13→20:17)
[2019-01-31] MEDS: HUMULIN R SUBQ SCH ×6 (00:05→20:33)
[2019-01-31 05:01] LABS: BASO# 0.04 X1000 (0.0-0.2); BASO% 0.5 % (0.0-0.8); EOS# 0.32 X1000 (0.0-0.7); EOS% 3.8 % (0.0-10.0); HEMATOCRIT 28.5 % (37.0-47.0); HEMOGLOBIN 8.1 g/dL (12.0-16.0); IMM GRAN# 0.05 X1000 (0.0-0.04); IMM GRAN% 0.6 % (0.0-0.5); LYMPH# 1.63 X1000 (1.2-3.4); LYMPH% 19.4 % (20.5-51.1); MCH 20.6 PG (27-31); MCHC 28.4 g/dL (33-37); MCV 72.5 FL (81-99); MONO# 1.23 X1000 (0.11-0.59); MONO% 14.6 % (1.7-9.3); MPV 11.4 FL (7.4-10.4); NEUT# 5.15 X1000 (1.4-6.5); NEUT% 61.1 % (42.2-75.2); PLT 255 X1000 (130-400); RBC 3.93 XMIL (4.2-5.4); RDW 21.6 % (11.5-14.5); WBC 8.42 X1000 (4.8-10.8)
[2019-01-31] MEDS: D5 1/2 NS + KCL 20 MEQ 1,000 ML IV SCH ×3 (05:19→19:51)
--- NOTE | 2019-01-31 06:46 | Diag Imaging Result Doc PS360 ---
CHEST-1 VIEW - 01/31/2019 INDICATION: SOB COMPARISON: 01/30/2019 FINDINGS: Stable moderate right and small left pleural effusions. There has been improvement in the patchy infiltrate or atelectasis in the left lung base. No new infiltrates. Heart size appears top normal. IMPRESSION: Improvement from prior. Electronically signed by Saravanan Monroe 01/31/2019 6:44 AM
[2019-01-31] MEDS: CARDIZEM 125/NS 125 MG/125 ML IVPB IV SCH ×2 (07:43→22:33)
[2019-01-31] MEDS: LOVENOX SUBQ SCH (08:10)
[2019-01-31] MEDS: VANCOMYCIN 1,300 MG in NS 250 ML IV SCH (08:10)
[2019-01-31] MEDS: PEPCID IV SCH ×2 (08:10→20:43)
[2019-01-31] MEDS: CYMBALTA PO SCH ×2 (08:10→20:46)
--- NOTE | 2019-01-31 12:29 | PROGRESS NOTE ---
DATE: 01/30/2019 SUBJECTIVE: The patient is obtunded and agitated. Still restraints. Still in atrial fibrillation. Blood pressure is running high. OBJECTIVE: Temperature is 97 degrees pulse 99, and blood pressure is 200/84. She is very combative and not following verbal commands. Not eating well and decreased air entry on both sides. Heart sounds are regular. Belly is soft, nontender. Good bowel sounds. Nonfocal. INVESTIGATIONS: CBC: White cell count 10, hematocrit 28, platelets 223. and glucose 188. Chest x-ray stable. ASSESSMENT AND PLAN: 1. Altered mental status with delirium. 2. Dementia. 3. Aspiration with hypostatic pneumonia on the left side. 4. Atrial fibrillation. 5. Depression. PLAN: 1. Continue IV fluids. 2. IV Cardizem drip, Geodon and Haldol as needed. Plan is waiting to be transferred to [facility]. 3. Currently on IV vancomycin and for antibiotics. 4. Deep venous thrombosis and gastrointestinal prophylaxis. 5. Living will. DNR. Poor prognosis. Consider palliative care consult. LEVEL OF DOCUMENTATION: 25 minutes. cc: Ronnie Tuttle MD
--- NOTE | 2019-01-31 16:44 | PROGRESS NOTE ---
DATE: 01/29/2019 SUBJECTIVE: This morning patient has atrial fibrillation. She is awake. She is slowly depressed, declining performance status, and also agitated. OBJECTIVE: Vital signs: Temperature is 98 degrees, heart rate is 100. Vitals are stable. General: She is awake. Ate some food yesterday with assistance. Chest: Bilateral air entry. Heart: Distant heart sounds. Abdomen: Belly is soft, nontender. LABS: None reported. SMA 7: Sodium 140, potassium 3.7. ASSESSMENT AND PLAN: 1. Hypoglycemia is better. 2. Atrial fibrillation, IV Cardizem drip. 3. Delirium. Restraints and Haldol only as needed. 4. Deconditioning. 5. Hypostatic pneumonia. Continue IV antibiotics. 6. Deep vein thrombosis and gastrointestinal prophylaxis. 7. Living Will, Do Not Resuscitate. Will transfer to the [facility], waiting for placement LEVEL OF DOCUMENTATION: 25 minutes. cc: Ronnie Tuttle MD
[2019-01-31] MEDS: CRESTOR PO SCH (20:43)
--- NOTE | 2019-01-31 22:11 | PROGRESS NOTE ---
DATE: 01/31/2019 SUBJECTIVE: The patient is a little better, wants to eat. EXAMINATION: Vital signs: Temperature is 98 degrees, pulse is 69, blood pressure is stable. HEENT: Within normal limits. Chest: Bilateral air entry. Heart: Sounds are irregular. Abdomen: Belly is soft, nontender. Neurologic: No neurological deficits. INVESTIGATIONS: CBC: White cell count 8.4, hematocrit 28, platelets 255,000. ASSESSMENT AND PLAN: 1. Altered mental status, delirium improving. 2. Intensive care unit psychosis. 3. Discontinue soft restraints. 4. Atrial fibrillation on Cardizem drip. 5. Transfer to telemetry. 6. Hypoglycemia is improving and gentle hydration with D5 half-normal saline. Incentive spirometry. 7. Aspiration pneumonia on IV vancomycin. 8. Out of the bed with physical therapy and living will DNR and we will follow up. cc: Ronnie Tuttle MD
[2019-02-01] MEDS: HUMULIN R SUBQ SCH ×6 (00:56→22:00)
--- NOTE | 2019-02-01 07:21 | Diag Imaging Result Doc PS360 ---
EXAM: CHEST-1 VIEW HISTORY: SOB TECHNIQUE: Portable chest single view COMPARISON: 01/31/2019 FINDINGS: Poor inspiratory effort. There are bilateral small to moderate-sized pleural effusion similar to the prior study. No cardiomegaly. There is basilar atelectasis and there may be underlying infiltrates. The overall appearance is similar to the prior exam. IMPRESSION: Stable chest Electronically signed by Liban Mace 02/01/2019 7:19 AM
[2019-02-01] MEDS: CYMBALTA PO SCH ×2 (08:04→20:59)
[2019-02-01] MEDS: LOVENOX SUBQ SCH (08:04)
[2019-02-01] MEDS: PEPCID IV SCH ×2 (08:04→20:59)
[2019-02-01] MEDS: D5 1/2 NS + KCL 20 MEQ 1,000 ML IV SCH ×2 (08:17→20:59)
[2019-02-01] MEDS: CARDIZEM 125/NS 125 MG/125 ML IVPB IV SCH (15:59)
[2019-02-01] MEDS: VANCOMYCIN 1,300 MG in NS 250 ML IV SCH (20:59)
[2019-02-01] MEDS: CRESTOR PO SCH (20:59)
--- NOTE | 2019-02-01 22:18 | PROGRESS NOTE ---
DATE: 02/01/2019 SUBJECTIVE: The patient is a little better, moved out of the ICU. The patient is more conversant. Family was at bedside. PHYSICAL EXAMINATION: Vital signs: Temperature is 98 degrees. Vitals are stable. Still on Cardizem drip, and IV fluids. HEENT: Within normal limits. Lungs: Poor air entry. Heart: Distant heart sounds. Abdomen: Belly is soft, nontender. Extremities: Peripheral edema noted in both upper extremities. INVESTIGATIONS: None reported. ASSESSMENT AND PLAN: 1. Acute metabolic encephalopathy, underlying depression, dementia and delirium. 2. Atrial fibrillation. 3. Hypostatic pneumonia. 4. Hypoglycemia is better. 5. Plan of care is out of the bed with physical therapy and advanced the diet and physical therapy. If she does well over the weekend, we will discharge back to the rehab. LEVEL OF DOCUMENTATION: 25 minutes. Living will is DNR. Family is at bedside. Level of documentation 25 minutes. cc: Ronnie Tuttle MD
[2019-02-02] MEDS: HUMULIN R SUBQ SCH ×6 (02:00→21:15)
[2019-02-02] MEDS: CARDIZEM 125/NS 125 MG/125 ML IVPB IV SCH (06:38)
[2019-02-02] MEDS: LOVENOX SUBQ SCH (08:08)
[2019-02-02] MEDS: CYMBALTA PO SCH ×2 (08:08→21:23)
[2019-02-02] MEDS: PEPCID IV SCH ×2 (08:08→21:46)
[2019-02-02] MEDS: TYLENOL PO PRN (08:50)
[2019-02-02] MEDS: COZAAR PO SCH (08:50)
[2019-02-02] MEDS: COREG PO SCH ×2 (08:50→21:23)
[2019-02-02] MEDS ORDERED: COREG PO SCH (09:00)
[2019-02-02] MEDS: CRESTOR PO SCH (21:22)
[2019-02-02] MEDS: ASPIRIN PO SCH (21:23)
[2019-02-02] MEDS: ALDACTONE PO SCH (21:23)
[2019-02-02] MEDS: PRILOSEC PO SCH (21:23)
--- NOTE | 2019-02-02 21:50 | PROGRESS NOTE ---
DATE: 02/02/2019 SUBJECTIVE: Patient is better. Son is at bedside. She is more calm and docile, not agitated. PHYSICAL EXAMINATION: Vital Signs: Temperature is 98 degrees, pulse 69, blood pressure stable. HEENT: Within normal limits. Chest: Poor air entry, distant. Heart: Sounds still atrial fibrillation on the monitor. Abdomen: Belly is soft, nontender. Extremities: Peripheral edema noted. Blood sugars are doing very well. ASSESSMENT AND PLAN: 1. Altered mental status, delirium, improving. 2. Hypoglycemia is better. Advance the diet. Discontinue intravenous fluids. 3. Atrial fibrillation. Discontinue Cardizem drip, changing to Coreg 6.25 p.o. b.i.d. 4. Deep venous thrombosis prophylaxis with Lovenox. 5. Gastrointestinal prophylaxis with intravenous Pepcid. 6. Diabetes, on sliding scale insulin coverage. 7. Hypertension, stable. 8. Patient is high risk for stroke from atrial fibrillation. Consider Xarelto low dose. 9. Living Will, Do Not Resuscitate. 10. Plan of care: Out of the bed with physical therapy and will discharge to rehab on Tuesday. LEVEL OF DOCUMENTATION: 25 minutes. cc: Ronnie Tuttle MD
[2019-02-03] MEDS: HUMULIN R SUBQ SCH ×6 (00:50→21:01)
[2019-02-03] MEDS: XARELTO PO SCH (05:48)
[2019-02-03] MEDS: COZAAR PO SCH (09:45)
[2019-02-03] MEDS: COREG PO SCH ×2 (09:45→21:00)
[2019-02-03] MEDS: CYMBALTA PO SCH ×2 (09:45→20:52)
[2019-02-03] MEDS: VANCOMYCIN 1,300 MG in NS 250 ML IV SCH (09:45)
[2019-02-03] MEDS: LOVENOX SUBQ SCH (09:45)
[2019-02-03] MEDS: PEPCID IV SCH ×2 (09:45→20:53)
--- NOTE | 2019-02-03 13:58 | PROGRESS NOTE ---
DATE: 02/03/2019 SUBJECTIVE: Ms Renner, who is an 88-year-old white female, was admitted with acute mental status change. She has some hypoglycemia. She also had atrial fibrillation. She was on Cardizem drip and has been on Coreg. Her lungs sound clear. Heart sounds are normal. Vital signs are stable. Overall condition is unchanged. I am going to continue current management. cc: MD Ronnie Spence MD
[2019-02-03] MEDS: PRILOSEC PO SCH (20:52)
[2019-02-03] MEDS: CRESTOR PO SCH (20:53)
[2019-02-03] MEDS: ASPIRIN PO SCH (20:53)
[2019-02-03] MEDS: ALDACTONE PO SCH (20:53)
[2019-02-04] MEDS: HUMULIN R SUBQ SCH ×6 (00:25→20:50)
[2019-02-04] MEDS: XARELTO PO SCH (05:59)
[2019-02-04] MEDS: COREG PO SCH ×2 (08:26→20:52)
[2019-02-04] MEDS: COZAAR PO SCH (08:26)
[2019-02-04] MEDS: LOVENOX SUBQ SCH (08:26)
[2019-02-04] MEDS: CYMBALTA PO SCH ×2 (08:27→20:51)
[2019-02-04] MEDS: PEPCID IV SCH ×2 (09:22→20:49)
[2019-02-04] MEDS ORDERED: COZAAR PO ONE (10:45)
--- NOTE | 2019-02-04 12:00 | PROGRESS NOTE ---
DATE: 02/04/2019 Ms. Renner is in about the same general condition. She still has some mental confusion. Her blood pressure was up last night, as well as this morning. It was 183/68. She is in atrial fibrillation. Gets hyperglycemia. This morning's blood sugar was 244. We will increase her losartan from 50 to 100 mg daily. We will watch her closely. -0 cc: MD Ronnie Spence MD
[2019-02-04] MEDS: VANCOMYCIN 1,300 MG in NS 250 ML IV SCH (14:07)
[2019-02-04] MEDS: ALDACTONE PO SCH (20:51)
[2019-02-04] MEDS: PRILOSEC PO SCH (20:51)
[2019-02-04] MEDS: ASPIRIN PO SCH (20:51)
[2019-02-04] MEDS: CRESTOR PO SCH (20:52)
[2019-02-05] MEDS: HUMULIN R SUBQ SCH ×4 (02:52→12:20)
[2019-02-05] MEDS: COZAAR PO SCH ×2 (04:43→08:52)
[2019-02-05] MEDS: XARELTO PO SCH (05:08)
[2019-02-05] MEDS: COREG PO SCH (08:52)
[2019-02-05] MEDS: PEPCID IV SCH (08:52)
[2019-02-05] MEDS: LOVENOX SUBQ SCH (08:52)
[2019-02-05] MEDS: CYMBALTA PO SCH (08:52)
--- NOTE | 2019-02-05 08:52 | DISCHARGE SUMMARY ---
ADMISSION DATE: 01/26/2019 DISCHARGE DATE: 02/05/2019 DISCHARGING DIAGNOSIS: Altered mental status due to hypoglycemia. SECONDARY DIAGNOSES: 1. 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 2. Chronic dementia with depression. 3. Paroxysmal atrial fibrillation. 4. Coronary artery disease. 5. 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 6. Chronic back pain. 7. Type 2 diabetes. Discontinue glimepiride. 8. Acid reflux disease. 9. Hyperlipidemia. 10. Hypertension. 11. Cervical spine spondylosis. 12. Diverticulosis. 13. History of deep venous thrombosis in the left leg. 14. Deconditioning. 15. Abnormal chest x-ray with elevated right hemidiaphragm. BRIEF HISTORY AND HOSPITAL COURSE: Please see the H and P that was done by the hospitalist. In brief, she is an 88-year-old, white female who was brought in by the long term with altered mental status, hypoglycemia. The patient was admitted in the ICU. The patient was started on D5 and maintained the blood sugars above 100. Glimepiride was discontinued. Apparently, one of her daughter of pancreatic cancer. Patient is very depressed. She is slowly declining of performance status, mostly bedridden and also dwindling of activities of daily living as well as instrumental activities. In the ICU, the patient has delirium with agitation requiring soft restraints, and Geodon, Ativan, and Haldol as needed. She also developed atrial fibrillation requiring IV Cardizem drip. Finally, she came back to the baseline. CT of the head was negative. Transferred out of the ICU to [facility]. She was sitting up in the bed. Blood sugars are doing very well. She is in sinus. In light of risk factors of prior DVT and atrial fibrillation, she was started on Xarelto. Blood pressure was running high. Medicines were restarted. LABS: CBC: White cell count 8.4, hematocrit 28.5, platelets 255,000. ABG: The pH is 7.25, pCO2 75, PO2 130. Sodium 140, potassium 3.7, chloride 104, BUN 9, creatinine 0.8. Blood cultures and urine cultures were negative. DISCHARGE INSTRUCTIONS: 1. Crestor 40 mg daily, aspirin 81 mg daily, Prilosec 40 daily, Zofran as needed for nausea, duloxetine 30 p.o. b.i.d., Aldactone 25 daily, hydroxyzine 25 at bedtime, MiraLAX 17 g daily, losartan 50 in the morning, Coreg 6.25 p.o. b.i.d., Xarelto 10 daily, sliding scale with insulin coverage. 2. Living will, Do Not Resuscitate. 3. Continue aggressive physical therapy. cc: Ronnie Tuttle MD
[2019-02-05] MEDS ORDERED: COZAAR PO SCH (09:00)
[2019-02-05] MEDS: TYLENOL PO PRN (10:48)
[2019-02-05 11:42] VITALS: BP 172/59
== END 2019-02-05 13:19 | DRG 637 ==
LOC: ED 19:46 → SUATTDRO 01-26 01:42 → EDIPHOLD 01-26 01:42 → ICU 01-26 03:52 → 3S 01-31 15:14
PROVIDERS: ADMIT Internal Medicine; ATTEND Internal Medicine
CPT/HCPCS: 51702; 70450; 71010; 71045; 71250; 80048; 80053; 80202; 81001; 82805; 82948; 83605; 85025; 87040; 87088; 93005; 93010; 94761; 94799; 96361; 96365; 96366; 96368; 96372; 96375; 97110; 97162; 97530; 99285; 99291; A9270; J0692; J1630; J1650; J3370; J3480; J3486; J7030; J7040; J7042; J7050; S0028; XXXXX